=== PATIENT | female | born 1970 | race African-American/Black ===

== ENCOUNTER 2016-03-05 02:47 | Emergency (ER) | payer MEDICAID, OTHER ==
[~2016-03-05] VITALS: Ht 165.1 cm; Wt 89.6 kg
[~2016-03-05 02:47] MED LIST: CIPR500T4 PO; HYDR-3533 PO; MEDR4PAK3 PO; META800 PO; TYLE3 PO
[2016-03-05 03:25] VITALS: BP 124/73; PULSE 71; RESP 18; TEMP 98.9; O2SAT 98
[2016-03-05] MEDS ORDERED: NYST10007 TOPICAL (03:51)
--- NOTE | 2016-03-05 03:53 | PD ---
HPI Chief Complaint: Skin Problem Time Seen by Provider: 03:44 Travel History International Travel<30 days: No Contact w/Intl Traveler<30days: No Traveled to known affect area: No History of Present Illness HPI The patient is a 46-year-old female that noticed in the last 10 days in the intertriginous area of her bilateral groin a skin rash that is slightly pruritic and slightly painful. She has tried hydrocortisone ointment on it and this helped but slightly but the rash is still there. She states she is not diabetic. PFSH Past Medical History Diminished Hearing: No Immunizations Current: No ?: Not LMP: 2 DAYS AGO : 6 Para: 4 Miscarriage: 2 Social History Alcohol Use: No Tobacco Use: No Substance Use: No Allergies-Medications (Allergen,Severity, Reaction): Coded Allergies: No Known Allergies (Verified , 09/21/14) Reported Meds & Prescriptions Reported Meds & Active Scripts Active No Active Prescriptions or Reported Medications Review of Systems Except as stated in HPI: all other systems reviewed are Neg Physical Exam Narrative GENERAL: The patient is alert, oriented 3 in no apparent distress. The vital signs are normal. SKIN: Warm and dry. There is an intertriginous rash that appears fungal in the bilateral groin. HEAD: Atraumatic. Normocephalic. EYES: Pupils equal and round. No scleral icterus. No injection or drainage. ENT: No nasal bleeding or discharge. Mucous membranes pink and moist. NECK: Trachea midline. No JVD. CARDIOVASCULAR: Regular rate and rhythm. No murmur appreciated. RESPIRATORY: No accessory muscle use. Clear to auscultation. Breath sounds equal bilaterally. GASTROINTESTINAL: Abdomen soft, non-tender, nondistended. Hepatic and splenic margins not palpable. MUSCULOSKELETAL: No obvious deformities. No clubbing. No cyanosis. No edema. NEUROLOGICAL: Awake and alert. No obvious cranial nerve deficits. Motor grossly within normal limits. Normal speech. PSYCHIATRIC: Appropriate mood and affect; insight and judgment normal. [facility] Medical Decision Making Medical Screen Exam Complete: Yes Emergency Medical Condition: Yes Medical Record Reviewed: Yes Differential Diagnosis Tinea cruris, monilial dermatitis, cellulitisunlikely Narrative Course This rash appears only in the intertriginous area. For this reason this appears to be monilial dermatitis. Plan: The patient will be given nystatin powder and she will keep this area dry. If this does not work she should try an antifungal cream such as an azole. Diagnosis Primary Impression: Monilial rash Additional Instructions: Keep the area in the groin clean and dry. Apply the powder 2 times daily. If this does not work in several weeks then you should see a insole toe snipping machine operator or try an [id number] antifungal cream. Also apply the antifungal cream twice daily. Med/Other Pt SpecificInfo: Prescription(s) given Scripts Nystatin Topical (Nystop Topical)100,000 Unit/Gm Powd1 Applic TOPICAL Q12HR # 60 GM Ref 0 Prov:Gabriel Zavala MD 03/05/16 Disposition: 01 DISCHARGE HOME Condition: Stable Gabriel Zavala MD Mar 05, 2016 03:53
== END 2016-03-05 04:01 | disposition home or self-care (01) ==
LOC: PHED 02:47
DX: R21 Rash and other nonspecific skin eruption (principal); B37.49 Other urogenital candidiasis
CPT/HCPCS: 99282

== ENCOUNTER 2016-03-21 21:42 | Emergency (ER) | payer MEDICAID, OTHER ==
[~2016-03-21] VITALS: Ht 165.1 cm; Wt 90.0 kg
[~2016-03-21 21:42] MED LIST changes: -CIPR500T4 PO; -HYDR-3533 PO; -MEDR4PAK3 PO; -META800 PO; +NYST10007 TOPICAL; -TYLE3 PO
[2016-03-21 21:55] VITALS: BP 132/82; PULSE 68; RESP 20; TEMP 98.2; O2SAT 100
[2016-03-21] MEDS ORDERED: LORA-361 PO (22:03)
--- NOTE | 2016-03-21 22:13 | PD ---
HPI Chief Complaint: Pain: Acute or Chronic Time Seen by Provider: 22:01 Travel History International Travel<30 days: No Contact w/Intl Traveler<30days: No Traveled to known affect area: No History of Present Illness HPI This 46-year-old female is complaining of left-sided chest pain. She says the pain started 2 or 3 days ago. It was initially intermittent but since yesterday been continuous. It is aggravated by movement of her left arm and also by direct palpation. She did not get any relief with Gas-X. She has no history of heart disease. She has no history of hypertension or diabetes. Her mother has heart disease and is alive at the age of 89. She does feel as though she is been short of breath at times. She does not smoke. There is no radiation a down the arms or to the back. The pain has been constant since yesterday PFSH Past Medical History Diminished Hearing: No Immunizations Current: Yes : 6 Para: 4 Miscarriage: 2 Social History Alcohol Use: No Tobacco Use: No Substance Use: No Allergies-Medications (Allergen,Severity, Reaction): Coded Allergies: No Known Allergies (Verified , 03/21/16) Reported Meds & Prescriptions Reported Meds & Active Scripts Active Reported Claritin (Loratadine) 10 Mg Tab 10 Mg PO DAILY Review of Systems General / Constitutional: No: Fever, Chills Eyes: No: Diploplia, Blurred Vision HENT: No: Headaches, Vertigo Cardiovascular: Positive: Chest Pain or Discomfort Respiratory: No: Cough, Shortness of Breath Gastrointestinal: No: Vomiting, Diarrhea Genitourinary: No: Urgency Skin: No Rash, No Itching Neurologic: No: Weakness Hematologic/Lymphatic: No: Easy Bruising Physical Exam Narrative GENERAL: Well-developed female SKIN: Warm and dry. HEAD: Atraumatic. Normocephalic. EYES: Pupils equal and round. No scleral icterus. No injection or drainage. ENT: No nasal bleeding or discharge. Mucous membranes pink and moist. NECK: Trachea midline. No JVD. CARDIOVASCULAR: Regular rate and rhythm. No murmur appreciated. RESPIRATORY: No accessory muscle use. Clear to auscultation. Breath sounds equal bilaterally. He has left-sided costochondral tenderness GASTROINTESTINAL: Abdomen soft, non-tender, nondistended. Hepatic and splenic margins not palpable. MUSCULOSKELETAL: No obvious deformities. No clubbing. No cyanosis. No edema. NEUROLOGICAL: Awake and alert. No obvious cranial nerve deficits. Motor grossly within normal limits. Normal speech. PSYCHIATRIC: Appropriate mood and affect; insight and judgment normal. Data Data Last Documented VS Vital Signs Date Time Temp Pulse Resp B/P Pulse Ox O2 Delivery O2 Flow Rate FiO2 03/21/16 22:03 68 18 03/21/16 21:55 98.2 132/82 100 Orders Electrocardiogram (03/21/16 22:08) Basic Metabolic Panel (Bmp) (03/21/16 22:08) Complete Blood Count With Diff (03/21/16 22:08) Troponin I (03/21/16 22:08) Chest, Single Ap (03/21/16 22:08) Ibuprofen (Motrin) (03/21/16 22:15) Labs Laboratory Tests Test 03/21/16 22:45 White Blood Count 7.4 TH/MM3 Red Blood Count 3.99 MIL/MM3 Hemoglobin 9.5 GM/DL Hematocrit 29.3 % Mean Corpuscular Volume 73.5 FL Mean Corpuscular Hemoglobin 23.7 PG Mean Corpuscular Hemoglobin 32.3 % Concent Red Cell Distribution Width 16.7 % Platelet Count 482 TH/MM3 Mean Platelet Volume 6.5 FL Neutrophils (%) (Auto) 57.9 % Lymphocytes (%) (Auto) 29.9 % Monocytes (%) (Auto) 7.0 % Eosinophils (%) (Auto) 4.4 % Basophils (%) (Auto) 0.8 % Neutrophils # (Auto) 4.3 TH/MM3 Lymphocytes # (Auto) 2.2 TH/MM3 Monocytes # (Auto) 0.5 TH/MM3 Eosinophils # (Auto) 0.3 TH/MM3 Basophils # (Auto) 0.1 TH/MM3 CBC Comment AUTO DIFF Differential Comment AUTO DIFF CONFIRMED Platelet Estimate HIGH Platelet Morphology Comment CLUMPED Sodium Level 140 MEQ/L Potassium Level 3.7 MEQ/L Chloride Level 107 MEQ/L Carbon Dioxide Level 28.0 MEQ/L Anion Gap 5 MEQ/L Blood Urea Nitrogen 9 MG/DL Creatinine 0.79 MG/DL Estimat Glomerular Filtration 95 ML/MIN Rate Random Glucose 88 MG/DL Calcium Level 7.9 MG/DL Troponin I LESS THAN 0.02 NG/ML MDM Medical Decision Making Medical Screen Exam Complete: Yes Emergency Medical Condition: Yes Medical Record Reviewed: Yes Differential Diagnosis Differential includes costochondritis, coronary artery disease, atypical chest pain Narrative Course This lady's pain is reproducible with palpation. It has been present for 24 hours so the tests should be reliable. Repeat EKG shows a normal sinus rhythm. Her troponin is negative. She was given some ibuprofen with improvement of her pain. She is stable for discharge impression is costochondritis Diagnosis Primary Impression: Costochondritis, acute Additional Instructions: take ibuprofen for pain , return as needed, follow up with your own doctor Disposition: 01 DISCHARGE HOME Condition: Stable Raymond Porter MD Mar 21, 2016 22:13
[2016-03-21] MEDS ORDERED: IBUPROFEN 600 MG TAB PO ONE (22:15)
--- NOTE | 2016-03-21 22:39 | RADHPO ---
EXAM DATE/TIME: 03/21/2016 22:28 [facility] COMPARISON: No previous studies available for comparison. INDICATIONS : Chest pain. MEDICAL HISTORY : None. SURGICAL HISTORY : None. ENCOUNTER: Initial ACUITY: 2 days PAIN SCORE: 6/10 LOCATION: Bilateral chest FINDINGS: A single view of the chest demonstrates the lungs to be symmetrically aerated without evidence of mas s, infiltrate or effusion. The cardiomediastinal contours are unremarkable. Osseous structures are intact. CONCLUSION: Normal examination. Erick Jolley Jr., MD on March 21, 2016 at 22:38 Board Certified Radiologist. This report was verified electronically.
[2016-03-21 22:51] LABS: AUTOMATED NEUTROPHIL # 4.3 TH/MM3 (1.8-7.7); BASOPHIL # 0.1 TH/MM3 (0-0.2); BASOPHIL % 0.8 % (0.0-2.0); EOSINOPHIL # 0.3 TH/MM3 (0-0.4); EOSINOPHIL % 4.4 % (0.0-4.0); HEMATOCRIT 29.3 % (35.0-46.0); LYMPH % 29.9 % (9.0-44.0); LYMPHOCYTE # 2.2 TH/MM3 (1.0-4.8); MEAN CELL VOLUME 73.5 FL (80.0-100.0); MEAN CORPUSCULAR HEMOGLOBIN 23.7 PG (27.0-34.0); MEAN CORPUSCULAR HGB CONC 32.3 % (32.0-36.0); NEUT % 57.9 % (16.0-70.0); PLATELET COUNT 482 TH/MM3 (150-450); RED BLOOD COUNT 3.99 MIL/MM3 (4.00-5.30); RED CELL DISTRIBUTION WIDTH 16.7 % (11.6-17.2); WHITE BLOOD COUNT 7.4 TH/MM3 (4.0-11.0)
[2016-03-21 22:57] LABS: HEMO FLAGS AUTO DIFF
[2016-03-21 23:07] LABS: CHLORIDE 107 MEQ/L (98-107); POTASSIUM 3.7 MEQ/L (3.5-5.1); SODIUM (NA) 140 MEQ/L (136-145)
[2016-03-21 23:10] LABS: ANION GAP 5 MEQ/L (5-15); BLOOD UREA NITROGEN 9 MG/DL (7-18)
[2016-03-21 23:13] LABS: GLOMERULAR FILTRATION RATE 95 ML/MIN (>89)
[2016-03-21 23:15] LABS: PLATELET ESTIMATE SMEAR HIGH (NORMAL); PLATELET MORPHOLOGY CLUMPED (NORMAL); SCAN/DIFF AUTO DIFF CONFIRMED
[2016-03-21 23:45] VITALS: BP 130/76; PULSE 68; RESP 18; O2SAT 100
--- NOTE | 2016-03-22 15:02 | EKG ---
Date Performed: 03/21/2016 Time Performed: 22:17:20 PTAGE: 46 years EKG: Sinus rhythm Normal ECG NO SIGNIFICANT CHANGE FROM PRIOR ELECTROCARDIOGRAM. PREVIOUS TRACING : 05/27/2003 12.32 DOCTOR: Camron Damon Interpretating Date/Time 03/22/2016 15:01:04
== END 2016-03-21 23:45 | disposition home or self-care (01) ==
LOC: PHED 21:42
DX: M94.0 Chondrocostal junction syndrome [Tietze] (principal)
CPT/HCPCS: 71010; 80048; 84484; 85025; 93005

== ENCOUNTER 2016-10-01 05:24 | Emergency (ER) | payer MEDICAID, OTHER ==
[~2016-10-01] VITALS: Ht 165.1 cm; Wt 86.0 kg
[~2016-10-01 05:24] MED LIST changes: +LORA-361 PO; -NYST10007 TOPICAL
[2016-10-01 05:30] VITALS: BP 131/62; PULSE 83; RESP 18; TEMP 98.7; O2SAT 99
[2016-10-01] MEDS ORDERED: KETOROLAC TROMETHAMINE 30 MG/ML (IVP) VIAL IV PUSH ONE (05:45)
[2016-10-01] MEDS ORDERED: CLAR10CA3 PO (05:47)
[2016-10-01 06:11] LABS: BLOOD, URINE LARGE (NEG); GLUCOSE,URINE NEG (NEG); KETONE, URINE NEG (NEG); NITRITE,URINE NEG (NEG); PH, URINE 5.5 (5.0-8.5)
[2016-10-01 06:12] LABS: URINE COLOR STRAW (YELLW/STRAW)
[2016-10-01 06:15] LABS: AUTOMATED NEUTROPHIL # 6.1 TH/MM3 (1.8-7.7); BASOPHIL % 0.5 % (0.0-2.0); EOSINOPHIL # 0.2 TH/MM3 (0-0.4); EOSINOPHIL % 2.5 % (0.0-4.0); HEMATOCRIT 25.3 % (35.0-46.0); LYMPH % 23.5 % (9.0-44.0); LYMPHOCYTE # 2.1 TH/MM3 (1.0-4.8); MEAN CELL VOLUME 65.3 FL (80.0-100.0); MEAN CORPUSCULAR HEMOGLOBIN 19.6 PG (27.0-34.0); MEAN CORPUSCULAR HGB CONC 30.1 % (32.0-36.0); MONO % 6.3 % (0.0-8.0); NEUT % 67.2 % (16.0-70.0); PLATELET COUNT 650 TH/MM3 (150-450); RED BLOOD COUNT 3.87 MIL/MM3 (4.00-5.30)
[2016-10-01 06:16] LABS: BACTERIA, URINE OCC /hpf; COMMENT (UR) CULT NOT INDICATED; CULTURE IF INDICATED CULT NOT INDICATED; HEMO FLAGS AUTO DIFF
[2016-10-01 06:21] LABS: CHLORIDE 104 MEQ/L (98-107); POTASSIUM 3.6 MEQ/L (3.5-5.1); SODIUM (NA) 138 MEQ/L (136-145)
[2016-10-01 06:25] LABS: ANION GAP 9 MEQ/L (5-15); BICARBONATE 25.4 MEQ/L (21.0-32.0)
[2016-10-01 06:26] LABS: BLOOD UREA NITROGEN 11 MG/DL (7-18)
[2016-10-01 06:28] LABS: ALT (GPT) 20 U/L (10-53); AST (GOT) 16 U/L (15-37); GLOMERULAR FILTRATION RATE 84 ML/MIN (>89); OVALOCYTES 1+ (NORMAL)
[2016-10-01 06:29] LABS: PLATELET ESTIMATE SMEAR HIGH (NORMAL); PLATELET MORPHOLOGY NORMAL (NORMAL); SCAN/DIFF AUTO DIFF CONFIRMED
[2016-10-01 06:30] LABS: TOTAL BILIRUBIN ADULT 0.2 MG/DL (0.2-1.0)
[2016-10-01 06:31] LABS: ALKALINE PHOSPHATASE 76 U/L (45-117)
--- NOTE | 2016-10-01 06:33 | PD ---
HPI Chief Complaint: Musculoskeletal Complaint Time Seen by Provider: 05:42 Travel History International Travel<30 days: No Contact w/Intl Traveler<30days: No Traveled to known affect area: No History of Present Illness HPI 46-year-old female presents to the emergency department for complaint of right back pain and flank pain that is associated with right-sided stabbing lower anterior chest pain with deep inspiratory effort and with resting supine. Patient denies any injury. Patient's had no recent long distance travel retracted bedrest her surgery. No lower extremity pain or swelling. Patient also denies any referred lower extremity numbness tingling or weakness saddle anesthesia or bladder or bowel dysfunction. Patient denies any fever or chills. Patient denies any injury or fall. Patient rates pain as severe 9/10 in intensity and worsening. Patient took Pepto-Bismol because she said it was gas related without relief. Patient denies any abdominal pain. Patient has had no dysuria frequency or urgency. Patient denies any pelvic pain. Patient insists finishing her menses. No report of ovarian cyst. Patient denies . Patient has had back pain in the past but this is reportedly different. Patient has been evaluated for inflammatory chest discomfort in the past as well costochondritis pleurisy and again states this is different. Patient does not report any productive cough or hemoptysis. [facility] Past Medical History Narrative Medical Negative past medical history negative surgical history; no tobacco use no alcohol use; nursing notes reviewed Medical History: Denies Significant Hx Diminished Hearing: No Immunizations Current: Yes Tetanus Vaccination: > 5 Years Influenza Vaccination: No ?: Unknown LMP: NOW : 6 Para: 4 Miscarriage: 2 Past Surgical History Surgical History: No Previous Surgery Social History Alcohol Use: No Tobacco Use: No Substance Use: No Allergies-Medications (Allergen,Severity, Reaction): Coded Allergies: No Known Allergies (Verified , 10/01/16) Reported Meds & Prescriptions Reported Meds & Active Scripts Active Tramadol (Tramadol HCl) 50 Mg Tab 50 Mg PO Q6H PRN Robaxin (Methocarbamol) 750 Mg Tab 750 Mg PO Q6HR Reported Claritin (Loratadine) 10 Mg Cap 10 Mg PO DAILY Review of Systems Except as stated in HPI: all other systems reviewed are Neg General / Constitutional: No: Fever, Chills HENT: No: Congestion Cardiovascular: No: Chest Pain or Discomfort (right lower anterior chest pain with inspiratory effort), Diaphoresis, Dyspnea on exertion Respiratory: Positive: Shortness of Breath (with deep breath), Pleuritic Pain Gastrointestinal: No: Nausea, Vomiting, Abdominal Pain Genitourinary: Positive: Flank Pain, No: Dysuria, Hematuria, Decreased Urinary Output, Pelvic Pain Musculoskeletal: Positive: Pain (right lower back), No: Myalgias, Arthralgias Skin: No Rash Neurologic: No: Weakness Psychiatric: No: Anxiety, Depression Endocrine: No: Heat Intolerance Hematologic/Lymphatic: No: Easy Bruising Physical Exam Narrative GENERAL: Well-developed well-nourished female in obvious discomfort. Appears to be in no respiratory distress. SKIN: Warm and dry. HEAD: Atraumatic. Normocephalic. EYES: Pupils equal and round. No scleral icterus. No injection or drainage. ENT: No nasal bleeding or discharge. Mucous membranes pink and moist. NECK: Trachea midline. No JVD. CARDIOVASCULAR: Regular rate and rhythm. RESPIRATORY: No accessory muscle use. Clear to auscultation. Breath sounds equal bilaterally. GASTROINTESTINAL: Abdomen soft, non-tender, nondistended. Hepatic and splenic margins not palpable. MUSCULOSKELETAL: Extremities without clubbing, cyanosis, or edema. No obvious deformities. Negative SLR bilaterally. Right flank pain to palpation. Tender to palpation bilateral SI joints R>L. DTR's 2++= bilateral UE/LE without clonus; right dorsalis pedis pulses 2+ to palpation. Sensory exam intact. No palpable posterior calf cording or Homans sign. NEUROLOGICAL: Awake and alert. No obvious cranial nerve deficits. Motor grossly within normal limits. Five out of 5 muscle strength in the arms and legs. Normal speech. PSYCHIATRIC: Appropriate mood and affect; insight and judgment normal. Data Data Last Documented VS Vital Signs Date Time Temp Pulse Resp B/P Pulse Ox O2 Delivery O2 Flow Rate FiO2 10/01/16 05:30 98.7 83 18 131/62 99 Orders ^ Saline Lock (10/01/16 05:42) Complete Blood Count With Diff (10/01/16 05:42) Comprehensive Metabolic Panel (10/01/16 05:42) Lipase (10/01/16 05:42) Urinalysis - C+S If Indicated (10/01/16 05:42) Ed Urine Pregnancytest Poc (10/01/16 05:42) Ketorolac Inj (Toradol Inj) (10/01/16 05:45) Electrocardiogram (10/01/16 ) Ct Pulmonary Angiogram (10/01/16 ) Ct Abd/Pel W/O Iv Contrast (10/01/16 ) Morphine Inj (Morphine Inj) (10/01/16 06:45) Ondansetron Inj (Zofran Inj) (10/01/16 06:45) Sodium Chlor 0.9% 1000 Ml Inj (Ns 1000 M (10/01/16 06:45) Troponin I (10/01/16 06:00) Labs Laboratory Tests Test 10/01/16 06:00 White Blood Count 9.0 TH/MM3 Red Blood Count 3.87 MIL/MM3 Hemoglobin 7.6 GM/DL Hematocrit 25.3 % Mean Corpuscular Volume 65.3 FL Mean Corpuscular Hemoglobin 19.6 PG Mean Corpuscular Hemoglobin 30.1 % Concent Red Cell Distribution Width 19.0 % Platelet Count 650 TH/MM3 Mean Platelet Volume 6.4 FL Neutrophils (%) (Auto) 67.2 % Lymphocytes (%) (Auto) 23.5 % Monocytes (%) (Auto) 6.3 % Eosinophils (%) (Auto) 2.5 % Basophils (%) (Auto) 0.5 % Neutrophils # (Auto) 6.1 TH/MM3 Lymphocytes # (Auto) 2.1 TH/MM3 Monocytes # (Auto) 0.6 TH/MM3 Eosinophils # (Auto) 0.2 TH/MM3 Basophils # (Auto) 0.0 TH/MM3 CBC Comment AUTO DIFF Differential Comment AUTO DIFF CONFIRMED Platelet Estimate HIGH Platelet Morphology Comment NORMAL Ovalocytes 1+ Urine Color STRAW Urine Turbidity SLIGHT Urine pH 5.5 Urine Specific [place] 1.008 Urine Protein NEG mg/dL Urine Glucose (UA) NEG mg/dL Urine Ketones NEG mg/dL Urine Occult Blood LARGE Urine Nitrite NEG Urine Bilirubin NEG Urine Leukocyte Esterase SMALL Urine RBC 4-9 /hpf Urine WBC 3-5 /hpf Urine Squamous Epithelial 6-8 /hpf Cells Urine Bacteria OCC /hpf Microscopic Urinalysis Comment CULT NOT INDICATED Sodium Level 138 MEQ/L Potassium Level 3.6 MEQ/L Chloride Level 104 MEQ/L Carbon Dioxide Level 25.4 MEQ/L Anion Gap 9 MEQ/L Blood Urea Nitrogen 11 MG/DL Creatinine 0.88 MG/DL Estimat Glomerular Filtration 84 ML/MIN Rate Random Glucose 107 MG/DL Calcium Level 8.4 MG/DL Total Bilirubin 0.2 MG/DL Aspartate Amino Transf 16 U/L (AST/SGOT) Alanine Aminotransferase 20 U/L (ALT/SGPT) Alkaline Phosphatase 76 U/L Total Protein 8.1 GM/DL Albumin 3.2 GM/DL Lipase 115 U/L MDM Medical Decision Making Medical Screen Exam Complete: Yes Emergency Medical Condition: Yes Medical Record Reviewed: Yes Interpretation(s) CBC & BMP Diagram 10/01/16 06:00 POC hCG: Negative Urinalysis large blood few RBCs few bacteria culture not indicated EKG normal sinus rhythm rate [address] elevation or injury pattern change Vital Signs Date Time Temp Pulse Resp B/P Pulse Ox O2 Delivery O2 Flow Rate FiO2 10/01/16 05:30 98.7 83 18 131/62 99 Differential Diagnosis Flank pain renal colic UTI pyelonephritis biliary colic sciatica pneumonia PE sacroiliitis lumbar radiculopathy shingles Narrative Course IV access obtained specimens collected and sent for resulting anticipate patient presents with musculoskeletal pain a sciatica variant also to consider piriformis syndrome however pain is primarily in the flank area and causes her to have increased pain in the chest with pleuritic type presentation on deep inspiratory effort. Patient administered Toradol 30 mg IV CBC is automated differential remarkable for anemia hemoglobin 7.6 with chronic iron deficiency indices. White cell count differential within normal limits grossly and metabolic panel values grossly within normal range urinalysis does show large blood consistent with end of menses. No indication for urine culture. Patient shows improvement of pain after Toradol 30 mg IV but continues to complain of sharp pain now not on the back but worsening when taking inspiratory effort with profile appears to be low for PE no reported family history of clotting disorder or connective tissue disorder autoimmune disorder patient is nonsmoker does not take control pills and no recent activities to predisposed to PE such as sedentary behavior protracted bed rest surgical procedure or long distance travel. However due to patient's ongoing complaint of sharp pain into her chest worsened with deep inspiratory effort will proceed with CT pulmonary angiogram EKG performed along with troponin I. CT and trop pendnig Diagnosis Primary Impression: Right flank pain Referrals: Primary Care Physician call for appointment Patient Instructions: Narcotic given in the ED, General Instructions Additional Instructions: Apply moist heat to right flank area as needed Take as tolerated ibuprofen 800 mg as often as every 8 hours for pain associated with inflammation Take acetaminophen/Tylenol every 4 hours as needed for fever 100.4F or greater Take muscle relaxants as prescribed as needed Take pain medication as prescribed as needed No work times one day Follow-up with primary care provider call office in a.m. Med/Other Pt SpecificInfo: Prescription(s) given Scripts Tramadol 50 Mg Tab50 Mg PO Q6H PRN (PAIN) #7 TAB Ref 0 Prov:Vannessa Linares MD 10/01/16 Methocarbamol (Robaxin)750 Mg Wib002 Mg PO Q6HR #12 TAB Ref 0 Prov:Vannessa Linares MD 10/01/16 Vannessa Linares MD Oct 01, 2016 06:33
[2016-10-01] MEDS ORDERED: SODIUM CHLOR 0.9% 1000 ML INJ 1,000 ML IV ONE (06:45)
[2016-10-01] MEDS ORDERED: MORPHINE SULFATE 8 MG/ML INJ IV PUSH ONE (06:45)
[2016-10-01] MEDS ORDERED: ONDANSETRON HCL 4 MG/2 ML VIAL IV PUSH ONE (06:45)
[2016-10-01] MEDS ORDERED: TRAM50TA PO (06:57)
[2016-10-01] MEDS ORDERED: ROBA750T PO (06:57)
[2016-10-01 07:00] VITALS: BP 115/61; PULSE 69; RESP 16; O2SAT 99
[2016-10-01] MEDS ORDERED: IOHEXOL 350 MG/ML 10 ML VIAL (for RAD DIAG) IV ONE (07:25)
[2016-10-01 07:31] VITALS: BP 117/68; PULSE 70; RESP 16; O2SAT 99
--- NOTE | 2016-10-01 07:37 | RADRPT ---
EXAM DATE/TIME: 10/01/2016 07:04 [facility] COMPARISON: No previous studies available for comparison. INDICATIONS : Right sided pain radiating anteriorly into chest on inspiration. Evaluate for pulmonary embolism. IV CONTRAST: 65 cc Omnipaque 350 (iohexol) IV RADIATION DOSE: 14.91 CTDIvol (mGy) MEDICAL HISTORY : None SURGICAL HISTORY : None. ENCOUNTER: Initial ACUITY: 1 day PAIN SCALE: 9/10 LOCATION: chest TECHNIQUE: Volumetric scanning of the chest was performed using a pulmonary embolism protocol MIP images were re constructed. Using automated exposure control and adjustment of the mA and/or kV according to patien t size, radiation dose was kept as low as reasonably achievable to obtain optimal diagnostic quality images. DICOM format image data is available electronically for review and comparison. Follow-up recommendations for incidentally detected pulmonary nodules are based at a minimum on nodul e size and patient risk factors according to Fleischner Society Guidelines. FINDINGS: PULMONARY ARTERIES: No filling defects are seen in the pulmonary arteries through the segmental level. LUNGS: There is no consolidation or pneumothorax . No concerning pulmonary nodule is visualized. PLEURAE: There is no pleural thickening or pleural effusion. MEDIASTINUM: Heart and great vessels demonstrate no acute finding. There is residual thymic tissue in the intermed iastinum and there are small, nonenlarged, lymph nodes in the AP window. MUSCULOSKELETAL: There are mild degenerative changes of the thoracic spine. MISCELLANEOUS: The visualized upper abdominal organs demonstrate no acute abnormality. There are 2 8mm low-density l esions in the left lobe of the liver. These have density measurements characteristic of cysts. CONCLUSION: 1. No PE is identified. 2. Additionally, no acute finding is identified within the chest to explain the clinical symptoms. Skyler Knight MD on October 01, 2016 at 7:31 Board Certified Radiologist. This report was verified electronically.
--- NOTE | 2016-10-01 07:42 | RADRPT ---
EXAM DATE/TIME: 10/01/2016 07:04 [facility] COMPARISON: No previous studies available for comparison. INDICATIONS : Right flank pain. Hematuria. ORAL CONTRAST: No oral contrast ingested. RADIATION DOSE: 23.07 CTDIvol (mGy) MEDICAL HISTORY : None SURGICAL HISTORY : None. ENCOUNTER: Initial ACUITY: 1 day PAIN SCALE: 9/10 LOCATION: Right flank TECHNIQUE: Volumetric scanning of the abdomen and pelvis was performed. Using automated exposure control and ad justment of the mA and/or kV according to patient size, radiation dose was kept as low as reasonably achievable to obtain optimal diagnostic quality images. DICOM format image data is available electro nically for review and comparison. FINDINGS: LOWER LUNGS: The visualized lower lungs are clear. LIVER: Homogeneous density with 3 low density lesions measuring between 5 and 8 mm with density measurements characteristic of cysts. There is no dilation of the biliary tree. No calcified gallstones. SPLEEN: Normal size without lesion. PANCREAS: Within normal limits. KIDNEYS: Normal in size and shape. There is no mass, stone, or hydronephrosis. No ureteral stones are visuali zed. ADRENAL GLANDS: Within normal limits. VASCULAR: There is no aortic aneurysm. BOWEL/MESENTERY: The stomach, small bowel, and colon demonstrate no acute abnormality. There is no free intraperitone al air or fluid. Appendix is normal. ABDOMINAL WALL: Within normal limits. RETROPERITONEUM: There is no lymphadenopathy. BLADDER: No wall thickening or mass. REPRODUCTIVE: Uterus is retroverted and mildly enlarged. No acute finding is identified. INGUINAL: There is no lymphadenopathy or hernia. MUSCULOSKELETAL: No acute abnormality is visualized. CONCLUSION: 1. No renal stones or signs of urinary obstruction are identified. 2. Additionally, no other acute finding is identified within the abdomen or pelvis. Skyler Knight MD on October 01, 2016 at 7:36 Board Certified Radiologist. This report was verified electronically.
--- NOTE | 2016-10-01 17:15 | EKG ---
Date Performed: 10/01/2016 Time Performed: 06:51:55 PTAGE: 46 years EKG: Sinus rhythm POSSIBLE LEFT ATRIAL ENLARGEMENT NONSPECIFIC T-WAVE ABNORMALITY BORDERLINE ECG Since PREVIOUS TRACING , no significant change noted PREVIOUS TRACIN03/21/2016 22.17 DOCTOR: Amanda Ordaz Interpretating Date/Time 10/01/2016 17:14:41
== END 2016-10-01 07:57 | disposition home or self-care (01) ==
LOC: PHED 05:24
DX: R10.9 Unspecified abdominal pain (principal); R94.31 Abnormal electrocardiogram [ECG] [EKG]
CPT/HCPCS: 71275; 74176; 80053; 81001; 83690; 84484; 84703; 85025; 93005; 96361; 96374; 96375; 99285; J1885; J2270; J2405; J7030; Q9967

== ENCOUNTER 2016-10-05 14:45 | Emergency (ER) | payer OTHER ==
[~2016-10-05] VITALS: Ht 165.1 cm; Wt 87.2 kg
[~2016-10-05 14:45] MED LIST changes: +CLAR10CA3 PO; -LORA-361 PO; +ROBA750T PO; +TRAM50TA PO
[2016-10-05 14:49] VITALS: BP 127/73; PULSE 84; RESP 16; TEMP 99; O2SAT 98
[2016-10-05 15:11] LABS: MEAN CORPUSCULAR HGB CONC 29.4 % (32.0-36.0)
--- NOTE | 2016-10-05 15:17 | PD ---
HPI Chief Complaint: Abnormal Results Time Seen by Provider: 15:03 Travel History International Travel<30 days: No Contact w/Intl Traveler<30days: No Traveled to known affect area: No History of Present Illness HPI This 46-year-old female was told to come here because of anemia. She was here on October 01 because of right flank pain. She had a fairly complete workup which did not reveal a cause of the pain. She was put on muscle relaxers and the pain has improved. At that time her visit on the she had hemoglobin of 7.6. She went to her primary care physician for follow-up. Repeat lab work was done and she was found to have a hemoglobin of 7. Her iron is 13 with an iron binding capacity of 318 and a percent saturation of 4. She does have hyperchromic microcytic indices. Patient has not had any dark stools. She does say that she has heavy periods and bleeds for about 2 weeks every month. She has not been short of breath. She is scheduled for pelvic ultrasound tomorrow PFS Past Medical History Diminished Hearing: No Immunizations Current: Yes ?: Not : 6 Para: 4 Miscarriage: 2 Social History Alcohol Use: No Tobacco Use: No Substance Use: No Allergies-Medications (Allergen,Severity, Reaction): Coded Allergies: No Known Allergies (Verified , 10/05/16) Reported Meds & Prescriptions Reported Meds & Active Scripts Active No Active Prescriptions or Reported Medications Review of Systems General / Constitutional: No: Fever, Chills Eyes: No: Diploplia, Blurred Vision HENT: No: Headaches Cardiovascular: No: Chest Pain or Discomfort, Palpitations Respiratory: No: Cough Gastrointestinal: No: Nausea, Vomiting Genitourinary: No: Urgency, Frequency Skin: No Rash, No Itching Physical Exam Narrative GENERAL: A little female SKIN: Focused skin assessment warm/dry. HEAD: Atraumatic. Normocephalic. EYES: Pupils equal and round. No scleral icterus. No injection or drainage. ENT: No nasal bleeding or discharge. Mucous membranes pink and moist. NECK: Trachea midline. No JVD. CARDIOVASCULAR: Regular rate and rhythm. No murmur appreciated. RESPIRATORY: No accessory muscle use. Clear to auscultation. Breath sounds equal bilaterally. GASTROINTESTINAL: Abdomen soft, non-tender, nondistended. Hepatic and splenic margins not palpable. MUSCULOSKELETAL: No obvious deformities. No clubbing. No cyanosis. No edema. NEUROLOGICAL: Awake and alert. No obvious cranial nerve deficits. Motor grossly within normal limits. Normal speech. PSYCHIATRIC: Appropriate mood and affect; insight and judgment normal. Data Data Last Documented VS Vital Signs Date Time Temp Pulse Resp B/P Pulse Ox O2 Delivery O2 Flow Rate FiO2 10/05/16 14:49 99.0 84 16 127/73 98 Orders Complete Blood Count With Diff (10/05/16 15:10) Labs Laboratory Tests Test 10/05/16 15:30 White Blood Count 4.9 TH/MM3 Red Blood Count 3.52 MIL/MM3 Hemoglobin 6.8 GM/DL Hematocrit 23.1 % Mean Corpuscular Volume 65.6 FL Mean Corpuscular Hemoglobin 19.3 PG Mean Corpuscular Hemoglobin 29.4 % Concent Red Cell Distribution Width 19.0 % Platelet Count 616 TH/MM3 Mean Platelet Volume 6.1 FL Neutrophils (%) (Auto) 46.7 % Lymphocytes (%) (Auto) 35.1 % Monocytes (%) (Auto) 12.6 % Eosinophils (%) (Auto) 5.1 % Basophils (%) (Auto) 0.5 % Neutrophils # (Auto) 2.4 TH/MM3 Lymphocytes # (Auto) 1.7 TH/MM3 Monocytes # (Auto) 0.6 TH/MM3 Eosinophils # (Auto) 0.2 TH/MM3 Basophils # (Auto) 0.0 TH/MM3 CBC Comment AUTO DIFF [place] Medical Decision Making Medical Screen Exam Complete: Yes Emergency Medical Condition: Yes Medical Record Reviewed: Yes Differential Diagnosis Differential includes iron deficiency anemia Narrative Course Patient does have iron deficiency anemia according to lab work done previously. Her hemoglobin today is 6.8, he does have symptoms of fatigue and dyspnea on exertion. I have discussed the pros and cons of transfusion versus iron mentation. She wishes a trial of iron at this time. I will write a prescription. She is undergoing evaluation for menorrhagia Diagnosis Primary Impression: Iron deficiency anemia Qualified Code: D50.0 - Iron deficiency anemia due to chronic blood loss Scripts Ferrous Gluconate 324 Mg Tab1 Tab PO BID 30 Days Prov:Raymond Porter MD 10/05/16 Disposition: 01 DISCHARGE HOME Condition: Stable Raymond Porter MD Oct 05, 2016 15:17
[2016-10-05 15:31] LABS: AUTOMATED NEUTROPHIL # 2.4 TH/MM3 (1.8-7.7); BASOPHIL % 0.5 % (0.0-2.0); EOSINOPHIL # 0.2 TH/MM3 (0-0.4); EOSINOPHIL % 5.1 % (0.0-4.0); HEMATOCRIT 23.1 % (35.0-46.0); LYMPH % 35.1 % (9.0-44.0); LYMPHOCYTE # 1.7 TH/MM3 (1.0-4.8); MEAN CELL VOLUME 65.6 FL (80.0-100.0); MEAN CORPUSCULAR HEMOGLOBIN 19.3 PG (27.0-34.0); MONO % 12.6 % (0.0-8.0); NEUT % 46.7 % (16.0-70.0); PLATELET COUNT 616 TH/MM3 (150-450); RED BLOOD COUNT 3.52 MIL/MM3 (4.00-5.30); WHITE BLOOD COUNT 4.9 TH/MM3 (4.0-11.0)
[2016-10-05 15:34] LABS: HEMO FLAGS AUTO DIFF
[2016-10-05] MEDS ORDERED: FERR324T PO (15:47)
[2016-10-05 16:02] LABS: OVALOCYTES 1+ (NORMAL); SCAN/DIFF AUTO DIFF CONFIRMED; TARGET CELLS 1+ (NORMAL)
[2016-10-05 16:03] VITALS: BP 103/61
== END 2016-10-05 16:06 | disposition home or self-care (01) ==
LOC: PHED 14:45
DX: D50.0 Iron deficiency anemia secondary to blood loss (chronic) (principal); N92.0 Excessive and frequent menstruation with regular cycle
CPT/HCPCS: 85025; 99283

== ENCOUNTER 2016-10-10 19:38 | Emergency (ER) | payer OTHER ==
[~2016-10-10] VITALS: Ht 165.1 cm; Wt 87.4 kg
[~2016-10-10 19:38] MED LIST changes: -CLAR10CA3 PO; +FERR324T PO; -ROBA750T PO; -TRAM50TA PO
[2016-10-10 19:53] VITALS: BP 144/65; PULSE 71; RESP 16; TEMP 98.8; O2SAT 100
[2016-10-10 20:56] VITALS: BP_SYST 11; BP_SYST 111; BP_DIAS 66; PULSE 73; RESP 16; O2SAT 99
[2016-10-10 21:15] VITALS: BP 107/65; PULSE 92; RESP 16; TEMP 98.2; O2SAT 100
[2016-10-10] MEDS ORDERED: SODIUM CHLORIDE 0.9% FLUSH 10 ML FLUSH IVF PRN (21:15)
[2016-10-10 21:21] LABS: AUTOMATED NEUTROPHIL # 4.1 TH/MM3 (1.8-7.7); BASOPHIL % 0.4 % (0.0-2.0); EOSINOPHIL # 0.4 TH/MM3 (0-0.4); HEMATOCRIT 24.2 % (35.0-46.0); HEMO FLAGS AUTO DIFF; LYMPH % 33.1 % (9.0-44.0); LYMPHOCYTE # 2.5 TH/MM3 (1.0-4.8); MEAN CELL VOLUME 65.3 FL (80.0-100.0); MEAN CORPUSCULAR HEMOGLOBIN 19.6 PG (27.0-34.0); NEUT % 53.5 % (16.0-70.0); PLATELET COUNT 662 TH/MM3 (150-450); RED BLOOD COUNT 3.71 MIL/MM3 (4.00-5.30); WHITE BLOOD COUNT 7.6 TH/MM3 (4.0-11.0)
[2016-10-10 21:37] LABS: PLATELET ESTIMATE SMEAR HIGH (NORMAL); PLATELET MORPHOLOGY NORMAL (NORMAL)
[2016-10-10 21:38] LABS: SCAN/DIFF AUTO DIFF CONFIRMED
[2016-10-10 21:40] LABS: APTT (PATIENT) 29.4 SEC (24.3-30.1); PROTHROMBIN TIME - PATIENT 10.5 SEC (9.8-11.6)
[2016-10-10 21:46] VITALS: BP 131/73; PULSE 64; RESP 18; O2SAT 100
[2016-10-10 21:49] LABS: CHLORIDE 106 MEQ/L (98-107); POTASSIUM 3.8 MEQ/L (3.5-5.1); SODIUM (NA) 140 MEQ/L (136-145)
[2016-10-10 21:52] LABS: ANION GAP 7 MEQ/L (5-15); BICARBONATE 27.4 MEQ/L (21.0-32.0)
[2016-10-10 21:53] LABS: BLOOD UREA NITROGEN 11 MG/DL (7-18)
[2016-10-10 21:56] LABS: GLOMERULAR FILTRATION RATE 113 ML/MIN (>89)
[2016-10-10 22:01] LABS: CREATINE KINASE 97 U/L (26-192)
--- NOTE | 2016-10-10 22:19 | RADRPT ---
EXAM DATE/TIME: 10/10/2016 21:54 [facility] COMPARISON: No previous studies available for comparison. INDICATIONS : Neck pain. No injury. MEDICAL HISTORY : None. SURGICAL HISTORY : None. ENCOUNTER: Initial ACUITY: 1 day PAIN SCORE: 6/10 LOCATION: Bilateral cervical spine. FINDINGS: No fracture or subluxation of the cervical spine. There is a mild kyphosis centered around C5, presum ably degenerative. Mild disc space narrowing and mild bilateral uncovertebral and facet osteoarthriti s with mild bilateral foraminal stenosis seen at C4/C5 and C5/C6. There is mild osteoarthritis anteriorly at C1/C2. CONCLUSION: No fracture or subluxation of the cervical spine. Mild degenerative changes with mild bilateral maxime inal encroachment at C4/C5 and C5/C6. Skyler Perez MD on October 10, 2016 at 22:17 Board Certified Radiologist. This report was verified electronically.
[2016-10-10 22:30] VITALS: BP 142/72
--- NOTE | 2016-10-10 22:56 | PD ---
HPI Chief Complaint: General Weakness Time Seen by Provider: 20:58 Travel History International Travel<30 days: No Contact w/Intl Traveler<30days: No Traveled to known affect area: No History of Present Illness HPI 46-year-old female here for evaluation of right-sided neck pain, nausea, and generalized weakness. Right-sided neck pain started today spontaneously. She describes a burning sensation intermittently in her right side of her neck that shoots down her right arm. She denies trauma. No motor deficits. No real modifying factors to her pain. Patient was seen in the emergency department 5 days ago and was found to be anemic with a hemoglobin of 6.8. She had microcytic anemia and was thought to be secondary to iron deficiency anemia. The patient also reports history of heavy vaginal bleeding/menorrhagia which she is in the process of having worked up as an outpatient. Discussion was had at that time with the emergency physician as well as the patient regarding iron therapy versus blood transfusion. The patient preferred iron therapy, and she is here today for repeat blood work. She does state that her stool is now black , but states that she is on iron. She is not currently having any menstrual bleeding. No chest pain or dyspnea. No abdominal pain. PFSH Past Medical History Diminished Hearing: No Immunizations Current: Yes Tetanus Vaccination: < 5 Years Influenza Vaccination: Yes ?: Not LMP: ONE WEEK AGO : 6 Para: 4 Miscarriage: 2 Social History Alcohol Use: No Tobacco Use: No Substance Use: No Allergies-Medications (Allergen,Severity, Reaction): Coded Allergies: No Known Allergies (Verified , 10/10/16) Reported Meds & Prescriptions Reported Meds & Active Scripts Active Ferrous Gluconate 324 Mg Tab 1 Tab PO BID 30 Days Review of Systems Except as stated in HPI: all other systems reviewed are Neg Physical Exam Narrative GENERAL: Well-developed, well-nourished, awake, alert, comfortable, no apparent distress. SKIN: Focused skin assessment warm/dry. HEAD: Atraumatic. Normocephalic. EYES: Pupils equal and round. No scleral icterus. No injection or drainage. ENT: Mucous membranes pink and moist. NECK: Trachea midline. No JVD. No midline vertebral step-off or tenderness. There is mild right lateral neck tenderness. No nuchal rigidity. CARDIOVASCULAR: Regular rate and rhythm. No murmur appreciated. RESPIRATORY: No accessory muscle use. Clear to auscultation. Breath sounds equal bilaterally. GASTROINTESTINAL: Abdomen soft, non-tender, nondistended. MUSCULOSKELETAL: No obvious deformities. No clubbing. No cyanosis. No edema. NEUROLOGICAL: Awake and alert. No obvious cranial nerve deficits. Motor grossly within normal limits. Normal speech. Normal muscle strength and sensation in bilateral upper and lower extremities. PSYCHIATRIC: Appropriate mood and affect; insight and judgment normal. Data Data Last Documented VS Vital Signs Date Time Temp Pulse Resp B/P Pulse Ox O2 Delivery O2 Flow Rate FiO2 10/10/16 21:46 64 18 131/73 100 Room Air 10/10/16 21:15 98.2 Orders Electrocardiogram (10/10/16 19:57) Basic Metabolic Panel (Bmp) (10/10/16 21:06) Ckmb (Isoenzyme) Profile (10/10/16 21:06) Complete Blood Count With Diff (10/10/16 21:06) Prothrombin Time / Inr (Pt) (10/10/16 21:06) Act Partial Throm Time (Ptt) (10/10/16 21:06) Troponin I (10/10/16 21:06) Ecg Monitoring (10/10/16 21:06) Iv Access Insert/Monitor (10/10/16 21:06) Oximetry (10/10/16 21:06) Sodium Chloride 0.9% Flush (Ns Flush) (10/10/16 21:15) Spine, Cervical Compl([id number]) (10/10/16 ) Labs Laboratory Tests Test 10/10/16 21:10 White Blood Count 7.6 TH/MM3 Red Blood Count 3.71 MIL/MM3 Hemoglobin 7.3 GM/DL Hematocrit 24.2 % Mean Corpuscular Volume 65.3 FL Mean Corpuscular Hemoglobin 19.6 PG Mean Corpuscular Hemoglobin 30.0 % Concent Red Cell Distribution Width 19.0 % Platelet Count 662 TH/MM3 Mean Platelet Volume 6.7 FL Neutrophils (%) (Auto) 53.5 % Lymphocytes (%) (Auto) 33.1 % Monocytes (%) (Auto) 8.0 % Eosinophils (%) (Auto) 5.0 % Basophils (%) (Auto) 0.4 % Neutrophils # (Auto) 4.1 TH/MM3 Lymphocytes # (Auto) 2.5 TH/MM3 Monocytes # (Auto) 0.6 TH/MM3 Eosinophils # (Auto) 0.4 TH/MM3 Basophils # (Auto) 0.0 TH/MM3 CBC Comment AUTO DIFF Differential Comment AUTO DIFF CONFIRMED Platelet Estimate HIGH Platelet Morphology Comment NORMAL Prothrombin Time 10.5 SEC Prothromb Time International 1.0 RATIO Ratio Activated Partial 29.4 SEC Thromboplast Time Sodium Level 140 MEQ/L Potassium Level 3.8 MEQ/L Chloride Level 106 MEQ/L Carbon Dioxide Level 27.4 MEQ/L Anion Gap 7 MEQ/L Blood Urea Nitrogen 11 MG/DL Creatinine 0.68 MG/DL Estimat Glomerular Filtration 113 ML/MIN Rate Random Glucose 88 MG/DL Calcium Level 8.3 MG/DL Total Creatine Kinase 97 U/L Troponin I LESS THAN 0.02 NG/ML MDM Medical Decision Making Medical Screen Exam Complete: Yes Emergency Medical Condition: Yes Medical Record Reviewed: Yes Interpretation(s) EKG: Sinus, rate 67, normal axis, normal intervals, no acute ischemic abnormality. Differential Diagnosis Cervical spine disc disease, foraminal stenosis, anemia/symptomatic anemia, cord compression unlikely, meningitis/encephalitis unlikely Narrative Course Initial vital signs show heart rate 71, blood pressure 144/65, pulse ox 100% on room air, oral temp of 98.8F. CBC is remarkable for hemoglobin 7.3, hematocrit 24.2, MCV 65.3, MCH 19.6, platelets 662. The patient's H&H 5 days ago was 6.8/23.1. BMP is unremarkable. Cardiac enzymes are negative. CT cervical spine: CONCLUSION: No fracture or subluxation of the cervical spine. Mild degenerative changes with mild bilateral foraminal encroachment at C4/C5 and C5/C6. Patient made aware of all findings. She is resting comfortably. Again there are no focal deficits or motor weakness on exam. Patient is happy that her hemoglobin is up trending, and still would like to continue with iron and outpatient follow-up as opposed to the transfusion. At this point I believe she is stable for discharge home with outpatient follow-up. She was informed on when to return to the emergency department. She verbalizes understanding and agreement with plan. Diagnosis Primary Impression: Anemia Qualified Code: D64.9 - Anemia, unspecified type Additional Impression: Neck pain Referrals: Primary Care Physician 3 days Additional Instructions: Follow-up with your primary care physician this week. Return to the emergency department for worsening symptoms or any other concerns. Disposition: 01 DISCHARGE HOME Condition: Stable Zay Jefferson MD Oct 10, 2016 22:55
[2016-10-10] MEDS ORDERED: KETOROLAC TROMETHAMINE 30 MG/ML (IVP) VIAL IV PUSH ONE (23:00)
[2016-10-10 23:15] VITALS: BP 117/57; TEMP 97.5
--- NOTE | 2016-10-11 00:19 | EKG ---
Date Performed: 10/10/2016 Time Performed: 20:04:41 PTAGE: 46 years EKG: Sinus rhythm POSSIBLE LEFT ATRIAL ENLARGEMENT NON-SPECIFIC ST/T WAVE CHANGES BORDERLINE ECG PREVIOUS TRACING : 10/01/2016 06.51 Compared to prior tracing no significant change DOCTOR: Emery Butler Interpretating Date/Time 10/11/2016 00:18:01
== END 2016-10-10 23:23 | disposition home or self-care (01) ==
LOC: PHED 19:38
DX: D64.9 Anemia, unspecified (principal); M54.2 Cervicalgia
CPT/HCPCS: 72050; 80048; 82550; 84484; 85025; 85610; 85730; 93005; 96374; 99285; J1885

== ENCOUNTER 2017-02-04 21:21 | Emergency (ER) | payer OTHER ==
[~2017-02-04] VITALS: Ht 165.1 cm; Wt 89.8 kg
[~2017-02-04 21:21] MED LIST changes: +DIFL150T PO; +NORE1TAB60 PO
[2017-02-04 21:29] VITALS: BP 136/68; PULSE 74; RESP 22; TEMP 98; O2SAT 99
[2017-02-04 21:30] VITALS: BP 136/68; PULSE 74; RESP 15; TEMP 98; O2SAT 99
--- NOTE | 2017-02-04 22:39 | PD ---
HPI Chief Complaint: General Weakness Time Seen by Provider: 21:37 Travel History International Travel<30 days: No Contact w/Intl Traveler<30days: No Traveled to known affect area: No History of Present Illness HPI PATIENT C/O FATIGUE AND GENERALIZED WEAKNESS RATES IT ABOUT AN 09/04......., NO ALLEVIATING FACTORS, BUT AGGRAVATED BY ACTIVITY......PT DENIES ASSOC FACTORS SUCH FEVER/COUGH/N/V/D/HEMATURIA/HEMATOCHEZIA/GI BLEED/ CP/ADEN/ABDPAIN/BACK PAIN. PCP IS DR LUNDBERG IN [facility] PMHX: LARGE FIBROIDS WITH HEAVY MENSES, ANEMIA DUE TO FIBROID PFSH Past Medical History Anemia: Yes Diminished Hearing: No Immunizations Current: Yes Tetanus Vaccination: Unknown Influenza Vaccination: No ?: Not LMP: 01/18/2017 : 6 Para: 4 Miscarriage: 2 Past Surgical History Surgical History: No Previous Surgery Social History Alcohol Use: No Tobacco Use: No Substance Use: No Allergies-Medications (Allergen,Severity, Reaction): Coded Allergies: No Known Allergies (Verified Adverse Reaction, Unknown, 12/27/16) Reported Meds & Prescriptions Reported Meds & Active Scripts Active Diflucan (Fluconazole) 150 Mg Tab 150 Mg PO ONCE Loestrin 1/20 (Norethindrone-Ethinyl Estradiol) 1-20 Mg-Mcg Tab 1 Tab PO DAILY Ferrous Gluconate 324 Mg Tab 1 Tab PO BID 30 Days Review of Systems Except as stated in HPI: all other systems reviewed are Neg General / Constitutional: Positive: Other (FATIGUE) Eyes: No: Visual changes HENT: No: Headaches Cardiovascular: No: Chest Pain or Discomfort Respiratory: No: Shortness of Breath Gastrointestinal: No: Abdominal Pain Genitourinary: No: Dysuria Musculoskeletal: No: Pain Skin: No Rash Neurologic: No: Weakness Psychiatric: No: Depression Endocrine: No: Polydipsia Hematologic/Lymphatic: No: Easy Bruising Physical Exam Narrative GENERAL: SKIN: Warm and dry. HEAD: Atraumatic. Normocephalic. EYES: Pupils equal and round. No scleral icterus. PALE CONJUNCTIVA WITHOUT injection or drainage. ENT: No nasal bleeding or discharge. Mucous membranes pink and moist. NECK: Trachea midline. No JVD. CARDIOVASCULAR: Regular rate and rhythm. RESPIRATORY: No accessory muscle use. Clear to auscultation. Breath sounds equal bilaterally. GASTROINTESTINAL: Abdomen soft, non-tender, nondistended. MUSCULOSKELETAL: Extremities without clubbing, cyanosis, or edema. No obvious deformities. NEUROLOGICAL: Awake and alert. No obvious cranial nerve deficits. Motor grossly within normal limits. Five out of 5 muscle strength in the arms and legs. Normal speech. PSYCHIATRIC: Appropriate mood and affect; insight and judgment normal. Data Data Last Documented VS Vital Signs Date Time Temp Pulse Resp B/P (MAP) Pulse Ox O2 Delivery O2 Flow Rate FiO2 02/04/17 21:41 99 Room Air 02/04/17 21:30 98.0 74 15 136/68 (90) Orders Orders Complete Blood Count With Diff (02/04/17 21:39) Comprehensive Metabolic Panel (02/04/17 21:39) Prothrombin Time / Inr (Pt) (02/04/17 21:39) Act Partial Throm Time (Ptt) (02/04/17 21:39) Iv Access Insert/Monitor (02/04/17 21:39) Ecg Monitoring (02/04/17 21:39) Oximetry (02/04/17 21:39) Type And Screen (02/04/17 22:18) Labs Laboratory Tests Test 02/04/17 21:20 Prothrombin Time 10.0 SEC Prothromb Time International Ratio 1.0 RATIO Activated Partial Thromboplast Time 28.0 SEC Blood Urea Nitrogen 14 MG/DL Creatinine 0.96 MG/DL Random Glucose 95 MG/DL Total Protein 8.2 GM/DL Albumin 3.2 GM/DL Calcium Level 8.4 MG/DL Aspartate Amino Transf (AST/SGOT) 40 U/L Alanine Aminotransferase (ALT/SGPT) 64 U/L Total Bilirubin 0.2 MG/DL Sodium Level 137 MEQ/L Potassium Level 3.8 MEQ/L Chloride Level 103 MEQ/L Carbon Dioxide Level 26.0 MEQ/L Anion Gap 8 MEQ/L Estimat Glomerular Filtration Rate 76 ML/MIN MDM Medical Decision Making Medical Screen Exam Complete: Yes Emergency Medical Condition: Yes Medical Record Reviewed: Yes Differential Diagnosis ANEMIA V DEHYDRATION V LIVER DZ V HYPOGLYCEMIA OR OTHER ELECTROLYTE ABNORMALITY Narrative Course ANEMIA WITH HB 8 BUT BETTER THAN HER USUAL. NO DEHYDRATION, NO MAJOR LIVER DISEASE, NO HYPOGLYCEMIA OR SIGNIFICANT ELECTROLYTE ABNL Diagnosis Primary Impression: Weakness generalized Additional Impressions: VIRAL SYNDROME ANEMIA Patient Instructions: Anemia (ED), General Instructions, Viral Syndrome (ED) Additional Instructions: PLEASE MAKE A FOLLOW UP APPOINTMENT WITH DR DOS SANTOS FOR FURTHER EVALUATION OR CARE. TODAY YOUR HEMOGLOBIN WAS 8, YOUR WHITE COUNT WAS NOT ELEVATED BUT SUGGESTIVE OF A VIRAL INFECTION. THE COMBINATION OF ANEMIA AND VIRAL SYNDROME WILL ACCOUNT FOR YOUR FATIGUE AND GENERALIZED WEAKNESS. Disposition: 01 DISCHARGE HOME Condition: Stable Wilfredo Lopez MD Feb 04, 2017 22:39
[2017-02-04 22:45] LABS: AUTOMATED NEUTROPHIL # 4.6 TH/MM3 (1.8-7.7); BASOPHIL # 0.1 TH/MM3 (0-0.2); BASOPHIL % 0.8 % (0.0-2.0); EOSINOPHIL # 0.3 TH/MM3 (0-0.4); EOSINOPHIL % 3.7 % (0.0-4.0); HEMATOCRIT 27.4 % (35.0-46.0); HEMOGLOBIN 8.1 GM/DL (11.6-15.3); LYMPH % 29.6 % (9.0-44.0); LYMPHOCYTE # 2.3 TH/MM3 (1.0-4.8); MEAN CELL VOLUME 68.5 FL (80.0-100.0); MEAN CORPUSCULAR HEMOGLOBIN 20.3 PG (27.0-34.0); MONO % 6.8 % (0.0-8.0); MONOCYTE # 0.5 TH/MM3 (0-0.9); NEUT % 59.1 % (16.0-70.0); PLATELET COUNT 631 TH/MM3 (150-450); WHITE BLOOD COUNT 7.8 TH/MM3 (4.0-11.0)
[2017-02-04 22:48] LABS: CHLORIDE 103 MEQ/L (98-107); SODIUM (NA) 137 MEQ/L (136-145)
[2017-02-04 22:51] LABS: CALCIUM 8.4 MG/DL (8.5-10.1)
[2017-02-04 22:52] LABS: ALBUMIN 3.2 GM/DL (3.4-5.0); BLOOD UREA NITROGEN 14 MG/DL (7-18); GLUCOSE,RANDOM 95 MG/DL (74-106)
[2017-02-04 22:53] LABS: MEAN CORPUSCULAR HGB CONC 29.6 % (32.0-36.0)
[2017-02-04 22:55] LABS: ALT (GPT) 64 U/L (10-53); AST (GOT) 40 U/L (15-37); CREATININE 0.96 MG/DL (0.50-1.00); GLOMERULAR FILTRATION RATE 76 ML/MIN (>89)
[2017-02-04 22:56] LABS: TOTAL BILIRUBIN ADULT 0.2 MG/DL (0.2-1.0); TOTAL PROTEIN 8.2 GM/DL (6.4-8.2)
[2017-02-04 22:58] LABS: ALKALINE PHOSPHATASE 79 U/L (45-117)
[2017-02-04 23:16] VITALS: BP 132/70; TEMP 98.2
[2017-02-04 23:27] LABS: OVALOCYTES 1+ (NORMAL); STOMATOCYTES 1+ (NORMAL)
[2017-02-23] MEDS ORDERED: TERC0.8C VAGINAL (14:33)
[2017-02-23] MEDS ORDERED: DIFL150T PO (14:33)
== END 2017-02-04 23:38 | disposition home or self-care (01) ==
LOC: PHED 21:21
DX: R53.1 Weakness (principal); B34.9 Viral infection, unspecified; D64.9 Anemia, unspecified
CPT/HCPCS: 80053; 85025; 85610; 85730; 86850; 86900; 86901; 99283

== ENCOUNTER 2017-08-09 21:07 | Observation (INO) | payer OTHER ==
[~2017-08-09] VITALS: Ht 165.1 cm; Wt 88.3 kg
[~2017-08-09 21:07] MED LIST changes: +TERC0.8C VAGINAL
[2017-08-09] MEDS ORDERED: IOHEXOL 350 MG/ML 10 ML VIAL (for RAD DIAG) IVCONTRAST ONE (21:08)
[2017-08-09 21:14] VITALS: BP 130/75; PULSE 63; RESP 16; TEMP 98.6; O2SAT 100
[2017-08-09] MEDS ORDERED: SODIUM CHLOR 0.9% 1000 ML INJ 1,000 ML IV SCH (21:36)
--- NOTE | 2017-08-09 21:42 | PD ---
HPI Chief Complaint: Flank/Kidney Pain Time Seen by Provider: 21:36 Travel History International Travel<30 days: No Contact w/Intl Traveler<30days: No Traveled to known affect area: No History of Present Illness HPI 47-year-old female presents to the emergency department by private transportation the care of her spouse for evaluation of right lower quadrant abdominal pain and flank pain. Symptoms and present since yesterday with worsening symptoms. No fever no chills nausea no vomiting no diarrhea no constipation no dysuria frequency urgency hematuria or vaginal discharge or vaginal bleeding. Last menses was greater than 2 weeks ago. Patient has history of uterine fibroids but denies history of ovarian cyst. No history of kidney stones. No abdominal surgeries. Patient denies any upper respiratory infection symptoms no headache no cough no congestion no sore throat no earache no fever no chills no chest pain. Patient takes no medications on a regular basis. Patient is taken no acetaminophen or ibuprofen for symptoms. Patient rates her pain 8/10 intensity worsened by movement and improved by remaining still. PFSH Past Medical History Narrative Medical Anemia Ab2 no tobacco use; nursing notes reviewed Anemia: Yes Diminished Hearing: No Immunizations Current: Yes Tetanus Vaccination: Unknown Influenza Vaccination: No ?: Not LMP: 07/26/17 : 6 Para: 4 Miscarriage: 2 Social History Alcohol Use: No Tobacco Use: No Substance Use: No Allergies-Medications (Allergen,Severity, Reaction): Coded Allergies: No Known Allergies (Verified Adverse Reaction, Unknown, 08/09/17) Reported Meds & Prescriptions Reported Meds & Active Scripts Active Terconazole Vaginal Cream 0.8 % Cream 1 Appl VAGINAL HS For 3 days. Diflucan (Fluconazole) 150 Mg Tab 150 Mg PO ONCE Loestrin 1/20 (Norethindrone-Ethinyl Estradiol) 1-20 Mg-Mcg Tab 1 Tab PO DAILY Ferrous Gluconate 324 Mg Tab 1 Tab PO BID 30 Days Review of Systems Except as stated in HPI: all other systems reviewed are Neg Physical Exam Narrative GENERAL: Well-developed well-nourished female no acute distress or respiratory distress SKIN: Warm and dry. HEAD: Normocephalic. EYES: No scleral icterus. No injection or drainage. NECK: Supple, trachea midline. No JVD or lymphadenopathy. CARDIOVASCULAR: Regular rate and rhythm without murmurs, gallops, or rubs. RESPIRATORY: Breath sounds equal bilaterally. No accessory muscle use. GASTROINTESTINAL: Abdomen soft, right lower quadrant tenderness to palpation with voluntary guarding or rebound, nondistended. Pelvic exam: Normal external exam no redness induration or lesions noted on speculum exam white mucus no discharge no blood no clots no tissue loss closed; bimanual exam no adnexal mass or tenderness no cervical motion tenderness probable palpable fibroid. MUSCULOSKELETAL: No cyanosis, or edema. BACK: Nontender without obvious deformity. No CVA tenderness. Data Data Last Documented VS Vital Signs Date Time Temp Pulse Resp B/P (MAP) Pulse Ox O2 Delivery O2 Flow Rate FiO2 08/09/17 21:51 16 97 Room Air 08/09/17 21:14 98.6 63 130/75 (93) Orders Orders Complete Blood Count With Diff (08/09/17 21:36) Comprehensive Metabolic Panel (08/09/17 21:36) Lipase (08/09/17 21:36) Urinalysis - C+S If Indicated (08/09/17 21:36) Ct Abd/Pel W Iv Contrast(Rout) (08/09/17 21:36) Iv Access Insert/Monitor (08/09/17 21:36) Oximetry (08/09/17 21:36) Sodium Chlor 0.9% 1000 Ml Inj (Ns 1000 M (08/09/17 21:36) Ed Urine Pregnancytest Poc (08/09/17 21:36) Morphine Inj (Morphine Inj) (08/09/17 21:45) Metoclopramide Inj (Reglan Inj) (08/09/17 21:45) Iohexol 350 Inj (Omnipaque 350 Inj) (08/09/17 21:08) NPO (08/10/17 00:21) Piperacil-Tazo 4.5 Gm Premix (Zosyn 4.5 (08/10/17 00:30) Morphine Inj (Morphine Inj) (08/10/17 00:30) Place In Observation (08/10/17 ) Vital Signs (Adult) Q4H (08/10/17 00:28) Activity Oob Ad Arlene (08/10/17 00:28) Intake + Output MAMIE.QSHIFT (08/10/17 00:28) Diet Npo (08/10/17 Breakfast) Sodium Chlor 0.9% 1000 Ml Inj (Ns 1000 M (08/10/17 00:28) Sodium Chloride 0.9% Flush (Ns Flush) (08/10/17 00:30) Sodium Chloride 0.9% Flush (Ns Flush) (08/10/17 09:00) Metoclopramide Inj (Reglan Inj) (08/10/17 00:30) Comprehensive Metabolic Panel (08/11/17 06:00) Complete Blood Count With Diff (08/11/17 06:00) Scd Bilateral/Knee High MAMIE.BID (08/10/17 00:28) Rock Bilateral/Knee High MAMIE.QSHIFT (08/10/17 00:33) Acetaminophen (Tylenol) (08/10/17 00:30) Acetamin-Hydrocod 325-5 Mg ([place] 5-325 (08/10/17 00:30) Morphine Inj (Morphine Inj) (08/10/17 00:30) Docusate Sodium-Senna (Nata-Colace) (08/10/17 09:00) Magnesium Hydroxide Liq (Milk Of Magnesi (08/10/17 00:30) Sennosides (Senokot) (08/10/17 00:30) Bisacodyl Supp (Dulcolax Supp) (08/10/17 00:30) Lactulose Liq (Lactulose Liq) (08/10/17 00:30) Labs Laboratory Tests Test 08/09/17 21:49 White Blood Count 6.8 TH/MM3 Red Blood Count 4.51 MIL/MM3 Hemoglobin 10.0 GM/DL Hematocrit 31.8 % Mean Corpuscular Volume 70.5 FL Mean Corpuscular Hemoglobin 22.1 PG Mean Corpuscular Hemoglobin Concent 31.3 % Red Cell Distribution Width 17.4 % Platelet Count 504 TH/MM3 Mean Platelet Volume 6.9 FL Neutrophils (%) (Auto) 54.7 % Lymphocytes (%) (Auto) 32.4 % Monocytes (%) (Auto) 8.2 % Eosinophils (%) (Auto) 3.4 % Basophils (%) (Auto) 1.3 % Neutrophils # (Auto) 3.7 TH/MM3 Lymphocytes # (Auto) 2.2 TH/MM3 Monocytes # (Auto) 0.6 TH/MM3 Eosinophils # (Auto) 0.2 TH/MM3 Basophils # (Auto) 0.1 TH/MM3 CBC Comment AUTO DIFF Differential Comment AUTO DIFF CONFIRMED Platelet Estimate HIGH Platelet Morphology Comment NORMAL Urine Color YELLOW Urine Turbidity SL CLOUDY Urine pH 6.0 Urine Specific [place] 1.025 Urine Protein NEG mg/dL Urine Glucose (UA) NEG mg/dL Urine Ketones NEG mg/dL Urine Occult Blood TRACE Urine Nitrite NEG Urine Bilirubin NEG Urine Urobilinogen 0.2 MG/DL Urine Leukocyte Esterase TRACE Urine RBC 3-5 /hpf Urine WBC 3-5 /hpf Urine Squamous Epithelial Cells 6-8 /hpf Urine Bacteria FEW /hpf Microscopic Urinalysis Comment CULT NOT INDICATED Blood Urea Nitrogen 10 MG/DL Creatinine 0.80 MG/DL Random Glucose 96 MG/DL Total Protein 8.2 GM/DL Albumin 3.3 GM/DL Calcium Level 8.1 MG/DL Alkaline Phosphatase 67 U/L Aspartate Amino Transf (AST/SGOT) 13 U/L Alanine Aminotransferase (ALT/SGPT) 19 U/L Total Bilirubin 0.1 MG/DL Sodium Level 140 MEQ/L Potassium Level 3.6 MEQ/L Chloride Level 107 MEQ/L Carbon Dioxide Level 24.3 MEQ/L Anion Gap 9 MEQ/L Estimat Glomerular Filtration Rate 93 ML/MIN Lipase 125 U/L [facility] Medical Decision Making Medical Screen Exam Complete: Yes Emergency Medical Condition: Yes Medical Record Reviewed: Yes Interpretation(s) POC preg: negative Last Impressions Abdomen/Pelvis CT 08/09/172135 Signed Impressions: CONCLUSION: 1. Appendicitis. 2. Enlarged uterus with multiple masses likely representing leiomyomatous gallardo ge. 3. Nonspecific small subcentimeter hepatic lesions. These likely represent cys ts. CBC & BMP Diagram 08/09/17 21:49 Total Protein 8.2, Albumin 3.3 L, Calcium Level 8.1 L, Alkaline Phosphatase 67, Aspartate Amino Transf (AST/SGOT) 13 L, Alanine Aminotransferase (ALT/SGPT) 19, Total Bilirubin 0.1 L Vital Signs Date Time Temp Pulse Resp B/P (MAP) Pulse Ox O2 Delivery O2 Flow Rate FiO2 08/09/17 21:51 16 97 Room Air 08/09/17 21:37 16 08/09/17 21:14 98.6 63 16 130/75 (93) 100 Differential Diagnosis Abdominal pain atypical appendicitis renal colic intestinal colic small bowel obstruction enteritis UTI ruptured ovarian cyst ovarian torsion mass Narrative Course IV access obtained specimens collected and sent for resulting Lab values grossly normal range [id number] hCG is negative Patient waiting for CT CT results are consistent with appendicitis and fundal leiomyomata; patient's complaint of pain is 6/10 intensity; CT results and presentation discussed with on-call surgeon patient to stay at [facility] to medicine service with a.m. appendectomy planned; call placed to [facility] service Physician Communication Physician Communication discussed with Dr Gamble; call placed to [facility] service Diagnosis Primary Impression: Appendicitis Vannessa Linares MD Aug 09, 2017 21:42
[2017-08-09] MEDS ORDERED: METOCLOPRAMIDE HCL 10 MG/2 ML VIAL IV PUSH ONE (21:45)
[2017-08-09] MEDS ORDERED: MORPHINE SULFATE 4 MG/ML INJ IV PUSH ONE (21:45)
[2017-08-09 21:51] VITALS: RESP 16; O2SAT 97
[2017-08-09 21:57] LABS: AUTOMATED NEUTROPHIL # 3.7 TH/MM3 (1.8-7.7); BASOPHIL # 0.1 TH/MM3 (0-0.2); BASOPHIL % 1.3 % (0.0-2.0); BILIRUBIN, URINE NEG (NEG); BLOOD, URINE TRACE (NEG); EOSINOPHIL # 0.2 TH/MM3 (0-0.4); EOSINOPHIL % 3.4 % (0.0-4.0); GLUCOSE,URINE NEG (NEG); HEMATOCRIT 31.8 % (35.0-46.0); KETONE, URINE NEG (NEG); LYMPH % 32.4 % (9.0-44.0); LYMPHOCYTE # 2.2 TH/MM3 (1.0-4.8); MEAN CELL VOLUME 70.5 FL (80.0-100.0); MEAN CORPUSCULAR HEMOGLOBIN 22.1 PG (27.0-34.0); MEAN CORPUSCULAR HGB CONC 31.3 % (32.0-36.0); MEAN PLATELET VOLUME 6.9 FL (7.0-11.0); MONO % 8.2 % (0.0-8.0); MONOCYTE # 0.6 TH/MM3 (0-0.9); NEUT % 54.7 % (16.0-70.0); NITRITE,URINE NEG (NEG); PLATELET COUNT 504 TH/MM3 (150-450); RED BLOOD COUNT 4.51 MIL/MM3 (4.00-5.30); RED CELL DISTRIBUTION WIDTH 17.4 % (11.6-17.2); URINE COLOR YELLOW (YELLW/STRAW); URINE LEUKOCYTE ESTERASE TRACE (NEG); WHITE BLOOD COUNT 6.8 TH/MM3 (4.0-11.0)
[2017-08-09 22:04] LABS: CHLORIDE 107 MEQ/L (98-107); SODIUM (NA) 140 MEQ/L (136-145)
[2017-08-09 22:05] LABS: BACTERIA, URINE FEW /hpf
[2017-08-09 22:08] LABS: CALCIUM 8.1 MG/DL (8.5-10.1)
[2017-08-09 22:09] LABS: ALBUMIN 3.3 GM/DL (3.4-5.0); BICARBONATE 24.3 MEQ/L (21.0-32.0); BLOOD UREA NITROGEN 10 MG/DL (7-18); GLUCOSE,RANDOM 96 MG/DL (74-106)
[2017-08-09 22:11] LABS: ALT (GPT) 19 U/L (10-53); AST (GOT) 13 U/L (15-37)
[2017-08-09 22:12] LABS: GLOMERULAR FILTRATION RATE 93 ML/MIN (>89)
[2017-08-09 22:13] LABS: TOTAL BILIRUBIN ADULT 0.1 MG/DL (0.2-1.0); TOTAL PROTEIN 8.2 GM/DL (6.4-8.2)
[2017-08-09 22:14] LABS: ALKALINE PHOSPHATASE 67 U/L (45-117)
--- NOTE | 2017-08-10 00:17 | RADRPT ---
EXAM DATE: 08/09/2017 11:47 PM EDT AGE/SEX: 47 years / Female INDICATIONS: Right lower quadrant pain. CLINICAL DATA: This is the patient's initial encounter. Patient reports that signs and symptoms have been present for 1 day and indicates a pain score of 7/10. MEDICAL/SURGICAL HISTORY: None. None. ORAL CONTRAST: No oral contrast ingested. RADIATION DOSE: 15.14 CTDI (mGy) COMPARISON: No prior exams available for comparison. TECHNIQUE: Multiple contiguous axial images were obtained through the abdomen and pelvis following b olus infusion of 91 ml Omnipaque 350 (iohexol) nonionic water-soluble contrast as a single exam dos e. No oral contrast ingested. Using automated exposure control and adjustment of the mA and/or kV ac cording to patient size, the radiation dose was kept as low as reasonably achievable to obtain optima l diagnostic quality images. FINDINGS: Lower Lungs: The visualized lower lungs are clear. Liver: There are nonspecific hypodense lesions seen at the anterior superior aspect of the left lobe of the liver measuring 0.9 cm, at the superior posterior aspect of the lateral segment the left lobe of liver measuring 0.9 cm, and at the inferior aspect of the right lobe of the liver adjacent to the gallbladder fossa measuring 0.5 cm. These are nonspecific. They likely represent cysts. Spleen: Homogeneous density without enlargement. Pancreas: Unremarkable without mass or calcification. Kidneys: Normal in size and shape. No evidence of mass or hydronephrosis. Adrenal Glands: Unremarkable. Aorta: The aorta and proximal iliac vessels are grossly unremarkable without aneurysmal dilation. Bowel/Mesentery: The appendix appears thickened. There is induration seen around the mid and distal aspect of the appendix. The proximal most aspect of the pancreas is small amount of air within the li mits. These changes are most consistent with appendicitis sparing the proximal aspect of the appendix . Abdominal Wall: Intact. Retroperitoneum: No evidence of adenopathy in the retrocrural, para-aortic, or deep pelvic regions. Bladder: Contours are smooth. Reproductive Organs: The uterus is enlarged with multiple masses likely representing leiomyomatous c hange. Inguinal: The inguinal region is unremarkable without evidence of adenopathy. Bony Structures: Unremarkable. CONCLUSION: 1. Appendicitis. 2. Enlarged uterus with multiple masses likely representing leiomyomatous change. 3. Nonspecific small subcentimeter hepatic lesions. These likely represent cysts. Electronically signed by: Skyler Rubin MD 08/10/2017 12:16 AM EDT
[2017-08-10] MEDS: SODIUM CHLOR 0.9% 1000 ML INJ 1,000 ML IV SCH ×3 (00:28→14:42)
[2017-08-10] MEDS ORDERED: SENNOSIDES 8.6 MG TAB PO PRN (00:30)
[2017-08-10] MEDS ORDERED: BISACODYL 10 MG SUPP RECTAL PRN (00:30)
[2017-08-10] MEDS ORDERED: PIPERACIL-TAZO 4.5 GM PREMIX 100 ML IV ONE (00:30)
[2017-08-10] MEDS ORDERED: SODIUM CHLORIDE 0.9% FLUSH 10 ML FLUSH IV FLUSH PRN (00:30)
[2017-08-10] MEDS ORDERED: MORPHINE SULFATE 2 MG/ML SYRINGE IV PUSH PRN (00:30)
[2017-08-10] MEDS ORDERED: MAGNESIUM HYDROXIDE SUSP 30 ML CUP PO PRN (00:30)
[2017-08-10] MEDS ORDERED: LACTULOSE SYRUP 20 GM/30 ML CUP PO PRN (00:30)
[2017-08-10] MEDS ORDERED: METOCLOPRAMIDE HCL 10 MG/2 ML VIAL IV PUSH PRN (00:30)
[2017-08-10] MEDS ORDERED: ACETAMINOPHEN/HYDROcodone 325 MG/5 MG TAB PO PRN ×2 (00:30→12:30)
[2017-08-10] MEDS ORDERED: ACETAMINOPHEN 325 MG TAB PO PRN (00:30)
[2017-08-10] MEDS ORDERED: MORPHINE SULFATE 4 MG/ML INJ IV PUSH ONE (00:30)
[2017-08-10 00:36] VITALS: BP 113/64; PULSE 78; RESP 16; O2SAT 98
[2017-08-10 01:15] VITALS: BP 119/58; PULSE 63; RESP 20; TEMP 97.2; O2SAT 98
[2017-08-10] MEDS: PIPERACIL-TAZO 3.375 GM PREMIX 50 ML IV SCH ×2 (08:40→16:15)
[2017-08-10 08:58] VITALS: BP 104/50; PULSE 59; RESP 17; TEMP 97.3; O2SAT 99
[2017-08-10] MEDS ORDERED: SODIUM CHLORIDE 0.9% FLUSH 10 ML FLUSH IV FLUSH SCH (09:00)
[2017-08-10] MEDS ORDERED: DOCUSATE SODIUM 50 MG/SENNA 8.6 MG TAB PO SCH (09:00)
--- NOTE | 2017-08-10 09:00 | HHI.HP ---
[facility] Jaqueline Lamb MD Admission Diagnosis appendicitis Diagnoses: (1) Appendicitis Chief Complaint: Abdominal pain. Travel History International Travel<30 Days: No Contact w/Intl Traveler <30 Da: No Traveled to Known Affected Are: No History of Present Illness This is a pleasant 47-year-old female patient with a known medical history of anemia presented to the ED via private transportation with her spouse for complaints of right lower quadrant abdominal pain. Patient states that her symptoms began Sunday afternoon beginning in her right lower quadrant, she states that she had a sharp pain only with activity. Resolved at rest. Patient states that the pain was relatively constant with activity, rates the pain an 8 out of 10 at its worst on pain scale, did not improve over the course of the next couple days therefore she decided to get evaluated. Patient denies taking any pain medications at home. She denies any associated nausea, vomiting , diarrhea, recent fevers, chills, cough, chest pain, or dysuria. She denies ever having this type of pain before. 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 Patient follows with her ADJUNCT LECTURER closely. Patient denies any recent black or bloody stools. PCP is Dr. Lamb. Patient does not take any medications on a daily basis. Review of Systems Constitutional: COMPLAINS OF: Fatigue, DENIES: Fever, Chills Eyes: DENIES: Diplopia Ears, nose, mouth, throat: DENIES: Vertigo Respiratory: DENIES: Cough, Sputum production, Shortness of breath Cardiovascular: DENIES: Chest pain, Palpitations Gastrointestinal: COMPLAINS OF: Abdominal pain (Right lower quadrant), DENIES: Black stools, Bloody stools, Constipation, Diarrhea, Nausea, Vomiting Musculoskeletal: DENIES: Joint pain Integumentary: DENIES: Abnormal pigmentation Immunologic/allergic: DENIES: Eczema Neurologic: DENIES: Abnormal gait Psychiatric: DENIES: Anxiety Except as stated in HPI: all other systems reviewed are Neg Past Family Social History Past Medical History Anemia Past Surgical History Uterine D&C Reported Medications Active Terconazole Vaginal Cream 0.8 % Cream 1 Appl VAGINAL HS For 3 days. Diflucan (Fluconazole) 150 Mg Tab 150 Mg PO ONCE Loestrin 1/20 (Norethindrone-Ethinyl Estradiol) 1-20 Mg-Mcg Tab 1 Tab PO DAILY Ferrous Gluconate 324 Mg Tab 1 Tab PO BID 30 Days Allergies: Coded Allergies: No Known Allergies (Verified Adverse Reaction, Unknown, 08/09/17) Active Ordered Medications Current Medications Medications (Trade) Dose Ordered Sig/Kyle Route Start Time Stop Time Status Last Admin Sodium Chloride 1,000 ml @ 100 mls/hr Q10H IV 08/10/17 00:28 08/10/17 00:28 (NS Flush) 2 ml UNSCH PRN IV FLUSH 08/10/17 00:30 (NS Flush) 2 ml BID IV FLUSH 08/10/17 09:00 (Reglan Inj) 5 mg Q6H PRN IV PUSH 08/10/17 00:30 (Tylenol) 650 mg Q6H PRN PO 08/10/17 00:30 ([place] 5-325 Mg) 1 tab Q4H PRN PO 08/10/17 00:30 (Morphine Inj) 2 mg Q3H PRN IV PUSH 08/10/17 00:30 (Nata-Colace) 1 tab BID PO 08/10/17 09:00 08/10/17 08:40 (Milk Of Magnesia Liq) 30 ml Q12H PRN PO 08/10/17 00:30 (Senokot) 17.2 mg Q12H PRN PO 08/10/17 00:30 (Dulcolax Supp) 10 mg DAILY PRN RECTAL 08/10/17 00:30 (Lactulose Liq) 30 ml DAILY PRN PO 08/10/17 00:30 Piperacillin Sod/ Tazobactam Sod 50 ml @ 100 mls/hr Q8H IV 08/10/17 09:00 08/10/17 08:40 Family History Paternal medical history significant for colon cancer. Social History Denies any history or current tobacco abuse, denies any alcohol use or illicit drug use. Physical Exam Vital Signs Vital Signs Date Time Temp Pulse Resp B/P (MAP) Pulse Ox O2 Delivery O2 Flow Rate FiO2 08/10/17 08:58 97.3 59 17 104/50 (68) 99 08/10/17 01:15 97.2 63 20 119/58 (78) 98 08/10/17 01:15 08/10/17 00:36 78 16 113/64 (80) 98 Room Air 08/09/17 21:51 16 97 Room Air 08/09/17 21:37 16 08/09/17 21:14 98.6 63 16 130/75 (93) 100 Physical Exam GENERAL: Well-developed, well-nourished patient in NAD. SKIN: Warm and dry. No rash. HEAD: Normocephalic. Atraumatic. EYES: Pupils equal and round. No scleral icterus. No injection or drainage. ENT: No nasal bleeding or discharge. Mucous membranes pink and moist. NECK: Supple. Trachea midline. CARDIOVASCULAR: Regular rate and rhythm. S1, S2 noted. No murmur appreciated. RESPIRATORY: No accessory muscle use. Clear to auscultation. Breath sounds equal bilaterally. GASTROINTESTINAL: Abdomen soft, nondistended. Normoactive bowel sounds x4. Right lower quadrant tenderness to palpation. MUSCULOSKELETAL: No obvious deformities. Extremities without clubbing, cyanosis , or edema. NEUROLOGICAL: Awake and alert. No obvious cranial nerve deficits. Motor grossly within normal limits. 5/5 muscle strength in bilateral upper and lower extremities. Normal speech. PSYCHIATRIC: Appropriate mood and affect; insight and judgment normal. Laboratory Laboratory Tests Test 08/09/17 21:49 White Blood Count 6.8 Red Blood Count 4.51 Hemoglobin 10.0 Hematocrit 31.8 Mean Corpuscular Volume 70.5 Mean Corpuscular Hemoglobin 22.1 Mean Corpuscular Hemoglobin Concent 31.3 Red Cell Distribution Width 17.4 Platelet Count 504 Mean Platelet Volume 6.9 Neutrophils (%) (Auto) 54.7 Lymphocytes (%) (Auto) 32.4 Monocytes (%) (Auto) 8.2 Eosinophils (%) (Auto) 3.4 Basophils (%) (Auto) 1.3 Neutrophils # (Auto) 3.7 Lymphocytes # (Auto) 2.2 Monocytes # (Auto) 0.6 Eosinophils # (Auto) 0.2 Basophils # (Auto) 0.1 CBC Comment AUTO DIFF Differential Comment AUTO DIFF CONFIRMED Platelet Estimate HIGH Platelet Morphology Comment NORMAL Urine Color YELLOW Urine Turbidity SL CLOUDY Urine pH 6.0 Urine Specific [place] 1.025 Urine Protein NEG Urine Glucose (UA) NEG Urine Ketones NEG Urine Occult Blood TRACE Urine Nitrite NEG Urine Bilirubin NEG Urine Urobilinogen 0.2 Urine Leukocyte Esterase TRACE Urine RBC 3-5 Urine WBC 3-5 Urine Squamous Epithelial Cells 6-8 Urine Bacteria FEW Microscopic Urinalysis Comment CULT NOT INDICATED Blood Urea Nitrogen 10 Creatinine 0.80 Random Glucose 96 Total Protein 8.2 Albumin 3.3 Calcium Level 8.1 Alkaline Phosphatase 67 Aspartate Amino Transf (AST/SGOT) 13 Alanine Aminotransferase (ALT/SGPT) 19 Total Bilirubin 0.1 Sodium Level 140 Potassium Level 3.6 Chloride Level 107 Carbon Dioxide Level 24.3 Anion Gap 9 Estimat Glomerular Filtration Rate 93 Lipase 125 Result Diagram: 08/09/17214808/09/172148 Imaging Last Impressions Abdomen/Pelvis CT 08/09/172135 Signed Impressions: CONCLUSION: 1. Appendicitis. 2. Enlarged uterus with multiple masses likely representing leiomyomatous gallardo ge. 3. Nonspecific small subcentimeter hepatic lesions. These likely represent cys ts. Septic Shock Reassessment Septic shock perfusion: reassessment completed Caprini VTE Risk Assessment Caprini VTE Risk Assessment: No/Low Risk (score <= 1) Caprini Risk Assessment Model Point Value = 1 Point Value = 2 Point Value = 3 Point Value = 5 Age 41-60 Minor surgery BMI > 25 kg/m2 Swollen legs Varicose veins or History of unexplained or recurrent spontaneous Oral contraceptives or hormone replacement Sepsis (< 1 month) Serious lung disease, including pneumonia (< 1 month) Abnormal pulmonary function Acute myocardial infarction Congestive heart failure (< 1 month) History of inflammatory bowel disease Medical patient at bed rest Age 61-74 Arthroscopic surgery Major open surgery (> 45 min) Laparoscopic surgery (> 45 min) Malignancy Confined to bed (> 72 hours) Immobilizing plaster cast Central venous access Age >= 75 History of VTE Family history of VTE Factor V Leiden Prothrombin [id number] Lupus anticoagulant Anticardiolipin antibodies Elevated serum homocysteine Heparin-induced thrombocytopenia Other congenital or acquired thrombophilia Stroke (< 1 month) Elective arthroplasty Hip, pelvis, or leg fracture Acute spinal cord injury (< 1 month) Prophylaxis Regimen Total Risk Factor Score Risk Level Prophylaxis Regimen 0-1 Low Early ambulation 2 Moderate Order ONE of the following: *Sequential Compression Device (SCD) *Heparin 5000 units SQ BID 3-4 Higher Order ONE of the following medications: *Heparin 5000 units SQ TID *Enoxaparin/Lovenox 40 mg SQ daily (WT < 150 kg, CrCl > 30 mL/min) *Enoxaparin/Lovenox 30 mg SQ daily (WT < 150 kg, CrCl > 10-29 mL/min) *Enoxaparin/Lovenox 30 mg SQ BID (WT < 150 kg, CrCl > 30 mL/min) AND/OR *Sequential Compression Device (SCD) 5 or more Highest Order ONE of the following medications: *Heparin 5000 units SQ TID (Preferred with Epidurals) *Enoxaparin/Lovenox 40 mg SQ daily (WT < 150 kg, CrCl > 30 mL/min) *Enoxaparin/Lovenox 30 mg SQ daily (WT < 150 kg, CrCl > 10-29 mL/min) *Enoxaparin/Lovenox 30 mg SQ BID (WT < 150 kg, CrCl > 30 mL/min) AND *Sequential Compression Device (SCD) Assessment and Plan Problem List: (1) Appendicitis ICD Code: K37 - Unspecified appendicitis Status: Acute Assessment and Plan This is a pleasant 47-year-old female patient with a known medical history of anemia presented to the ED via private transportation with her spouse for complaints of right lower quadrant abdominal pain. Patient states that her symptoms began Sunday afternoon beginning in her right lower quadrant, she states that she had a sharp pain only with activity. Acute appendicitis with complaints of right lower quadrant abdominal pain - Abdominal/pelvis CT showing appendicitis. Enlarged uterus. - Patient was placed on IV Zosyn. Will continue. Ensure hydration, continue IV fluids. No leukocytosis at this time. Afebrile. UA negative. Monitor for any infection. - Pain control, [place] p.o. and morphine IV available as needed per pain scale. - Reglan available for nausea or vomiting. - General surgery consulted, appreciate input recommendations. Will plan for appendectomy today by Dr. Gamble. - Further treatment plan and hospitalization will depend on general surgery recommendations. Chronic microcytic hypochromic anemia - Patient being followed by [employer]EIGN STUDENT ADVISER. Outpatient follow-up. No signs of bleeding. Will continue to monitor CBC. DVT prophylaxis: SCDs. Discharge patient to home. Condition on discharge: Improved Regular Diet as tolerated. Ad Arlene activity. Rx written: See discharge plan. Follow-up with primary care physician and surgeon. Problem Qualifiers (1) Appendicitis: Qualified Codes: K35.3 - Acute appendicitis with localized peritonitis Amber Petersen Aug 10, 2017 09:00
[2017-08-10] MEDS ORDERED: BUPIVACAINE/EPINEPHRINE 0.5% PF 30 ML VIAL ONE (09:29)
--- NOTE | 2017-08-10 09:58 | PD.CONS ---
cc: Howie Gamble MD [facility] Service CONSULTATION NOTE FOR SURGICAL ATTENDING, DR. HOWIE GAMBLE General Surgery Consult Requested By Dr. Linares Reason for Consult Acute appendicitis Primary Care Physician Jaqueline Lamb MD History of Present Illness This is a 47 year old female with a past medical history of uterine fibroids who presented to the ED overnight with sudden onset of abdominal pain on Sunday evening. She reports no associated nausea or vomiting. A CT abdomen/ pelvis was obtained which shows inflammation of the appendix. She has a normal WBC. She denies any fevers. Of note, the patient's hemoglobin earlier this year was 6.0 secondary to uterine fibroids and heavy menses. She was transfused. A General Surgery consultation has been requested. Review of Systems Constitutional: DENIES: Fatigue, Weight loss, Chills, Change in appetite Endocrine: DENIES: Polydipsia, Polyuria, Polyphagia Eyes: DENIES: Diplopia, Eye inflammation Ears, nose, mouth, throat: DENIES: Hearing loss Respiratory: DENIES: Cough Cardiovascular: DENIES: Chest pain, Dyspnea on Exertion Gastrointestinal: COMPLAINS OF: Abdominal pain, DENIES: Nausea, Vomiting Genitourinary: DENIES: Hematuria, Dysuria Musculoskeletal: DENIES: Joint pain Integumentary: DENIES: Abnormal pigmentation Hematologic/lymphatic: DENIES: Bruising Immunologic/allergic: DENIES: Eczema Neurologic: DENIES: Abnormal gait, Headache Psychiatric: DENIES: Confusion, Mood changes, Depression Past Family Social History Past Medical History Uterine fibroids Past Surgical History Diagnostic laparoscopy Reported Medications control injections Allergies: Coded Allergies: No Known Allergies (Verified Adverse Reaction, Unknown, 08/09/17) Active Ordered Medications Current Medications Medications (Trade) Dose Ordered Sig/Kyle Route Start Time Stop Time Status Last Admin Sodium Chloride 1,000 ml @ 100 mls/hr Q10H IV 08/10/17 00:28 08/10/17 00:28 (NS Flush) 2 ml UNSCH PRN IV FLUSH 08/10/17 00:30 (NS Flush) 2 ml BID IV FLUSH 08/10/17 09:00 (Reglan Inj) 5 mg Q6H PRN IV PUSH 08/10/17 00:30 (Tylenol) 650 mg Q6H PRN PO 08/10/17 00:30 (Stevenson 5-325 Mg) 1 tab Q4H PRN PO 08/10/17 00:30 (Morphine Inj) 2 mg Q3H PRN IV PUSH 08/10/17 00:30 (Nata-Colace) 1 tab BID PO 08/10/17 09:00 08/10/17 08:40 (Milk Of Magnesia Liq) 30 ml Q12H PRN PO 08/10/17 00:30 (Senokot) 17.2 mg Q12H PRN PO 08/10/17 00:30 (Dulcolax Supp) 10 mg DAILY PRN RECTAL 08/10/17 00:30 (Lactulose Liq) 30 ml DAILY PRN PO 08/10/17 00:30 Piperacillin Sod/ Tazobactam Sod 50 ml @ 100 mls/hr Q8H IV 08/10/17 09:00 08/10/17 08:40 Family History Noncontributory Social History Denies tobacco use Denies ETOH use Denies illicit drug use Physical Exam Vital Signs Vital Signs Date Time Temp Pulse Resp B/P (MAP) Pulse Ox O2 Delivery O2 Flow Rate FiO2 08/10/17 08:58 97.3 59 17 104/50 (68) 99 08/10/17 01:15 97.2 63 20 119/58 (78) 98 08/10/17 01:15 08/10/17 00:36 78 16 113/64 (80) 98 Room Air 08/09/17 21:51 16 97 Room Air 08/09/17 21:37 16 08/09/17 21:14 98.6 63 16 130/75 (93) 100 Physical Exam GENERAL: Pleasant 47 year old female resting in bed in no acute distress. SKIN: Warm and dry. HEAD: Atraumatic. Normocephalic. EYES: Pupils equal and round. No scleral icterus. No injection or drainage. ENT: No nasal bleeding or discharge. Mucous membranes pink and moist. NECK: Trachea midline. CARDIOVASCULAR: Regular rate and rhythm. RESPIRATORY: No accessory muscle use. Clear to auscultation. Breath sounds equal bilaterally. GASTROINTESTINAL: Abdomen soft, mildly distended; RLQ tenderness with palpation mild rebound and guarding. MUSCULOSKELETAL: Extremities without clubbing, cyanosis, or edema. No obvious deformities. NEUROLOGICAL: Awake and alert. No obvious cranial nerve deficits. Motor grossly within normal limits. Five out of 5 muscle strength in the arms and legs. Normal speech. PSYCHIATRIC: Appropriate mood and affect; insight and judgment normal. Laboratory Laboratory Tests Test 08/09/17 21:49 White Blood Count 6.8 Red Blood Count 4.51 Hemoglobin 10.0 Hematocrit 31.8 Mean Corpuscular Volume 70.5 Mean Corpuscular Hemoglobin 22.1 Mean Corpuscular Hemoglobin Concent 31.3 Red Cell Distribution Width 17.4 Platelet Count 504 Mean Platelet Volume 6.9 Neutrophils (%) (Auto) 54.7 Lymphocytes (%) (Auto) 32.4 Monocytes (%) (Auto) 8.2 Eosinophils (%) (Auto) 3.4 Basophils (%) (Auto) 1.3 Neutrophils # (Auto) 3.7 Lymphocytes # (Auto) 2.2 Monocytes # (Auto) 0.6 Eosinophils # (Auto) 0.2 Basophils # (Auto) 0.1 CBC Comment AUTO DIFF Differential Comment AUTO DIFF CONFIRMED Platelet Estimate HIGH Platelet Morphology Comment NORMAL Urine Color YELLOW Urine Turbidity SL CLOUDY Urine pH 6.0 Urine Specific [place] 1.025 Urine Protein NEG Urine Glucose (UA) NEG Urine Ketones NEG Urine Occult Blood TRACE Urine Nitrite NEG Urine Bilirubin NEG Urine Urobilinogen 0.2 Urine Leukocyte Esterase TRACE Urine RBC 3-5 Urine WBC 3-5 Urine Squamous Epithelial Cells 6-8 Urine Bacteria FEW Microscopic Urinalysis Comment CULT NOT INDICATED Blood Urea Nitrogen 10 Creatinine 0.80 Random Glucose 96 Total Protein 8.2 Albumin 3.3 Calcium Level 8.1 Alkaline Phosphatase 67 Aspartate Amino Transf (AST/SGOT) 13 Alanine Aminotransferase (ALT/SGPT) 19 Total Bilirubin 0.1 Sodium Level 140 Potassium Level 3.6 Chloride Level 107 Carbon Dioxide Level 24.3 Anion Gap 9 Estimat Glomerular Filtration Rate 93 Lipase 125 Result Diagram: 08/09/17214808/09/172148 Imaging Last 48 hours Impressions Abdomen/Pelvis CT 08/09/172135 Signed Impressions: CONCLUSION: 1. Appendicitis. 2. Enlarged uterus with multiple masses likely representing leiomyomatous gallardo ge. 3. Nonspecific small subcentimeter hepatic lesions. These likely represent cys ts. Assessment and Plan Problem List: (1) Abdominal rebound tenderness of right lower quadrant ICD Codes: R10.823 - Right lower quadrant rebound abdominal tenderness Status: Acute (2) Abnormal CT of the abdomen ICD Codes: R93.5 - Abnormal findings on diagnostic imaging of other abdominal regions, including retroperitoneum Status: Acute (3) Appendicitis ICD Codes: K37 - Unspecified appendicitis Status: Acute (4) Anemia ICD Codes: D64.9 - Anemia, unspecified Status: Chronic (5) Fibroid ICD Codes: D25.9 - Leiomyoma of uterus, unspecified Status: Chronic Assessment and Plan 47 year old female with RLQ tenderness; CT c/w appendicitis -Will plan for OR today -Obtain consents -NPO -Zosyn -IVF -Pain control -Thank you for this consult; We will continue to follow Discussed Condition With Dr. Mavis Hui Attending Statement CONSULTATION NOTE FOR SURGICAL ATTENDING, DR. HOWIE GAMBLE I agree with above assessment and plan. Patient seen Reviewed CT scan Has classic symptomatology consistent with appendicitis confirmed with radiologic imaging Discussed in detail surgical treatment she appears to understand The exam, history, and the medical decision-making described in the above note were completed with the assistance of the mid-level provider. I reviewed and agree with the findings presented. I attest that I had a [id number] encounter with the patient on the same day, and personally performed and documented my assessment and findings in the medical record. The following services were provided during this hospital visit: Chart data review, vital sign assessments/reviewing monitor data Review of consultations notes if present. Medication orders/review and/or management Ordering and/or reviewing lab tests Ordering and/or interpreting/reviewing x-rays and/or diagnostic studies Care of the patient and discussion of the patient with the care team Documentation time To help prompt me to consider important information that might be impacting today's encounter and assessment, Information from prior notes written by myself or my colleagues may have been "brought forward/copy and pasted" into today's note. Problem Qualifiers (1) Appendicitis: Qualified Codes: K35.3 - Acute appendicitis with localized peritonitis Sandy Garcia/[employer] Aug 10, 2017 09:58 Howie Gamble MD Aug 10, 2017 12:15
[2017-08-10] MEDS ORDERED: fentaNYL CITRATE 250 MCG/5 ML AMP ONE (10:08)
[2017-08-10] MEDS ORDERED: MIDAZOLAM HCL 2 MG/2 ML VIAL ONE (10:15)
[2017-08-10 11:36] VITALS: PULSE 88
--- NOTE | 2017-08-10 12:19 | HHI.PR ---
cc: Howie Gamble MD Immediate Post Op Note Procedure Date: Aug 10, 2017 Pre Op Diagnosis: (1) Appendicitis (2) Abnormal CT of the abdomen (3) Abdominal rebound tenderness of right lower quadrant (4) Abnormal menses (5) Fibroid Post Op Diagnosis: (1) S/P laparoscopic appendectomy (2) Appendicitis (3) Abnormal CT of the abdomen (4) Abdominal rebound tenderness of right lower quadrant (5) Anemia (6) Fibroid Surgeon: Howie Gamble Dental Lab Technician(s): Please refer to ER records Procedure: Laparoscopic appendectomy Findings: Inflamed appendix fibroid uterus Complications: None Specimen(s) removed: Inflamed appendix Estimated blood loss: 10 cc Anesthesia: General Drains: None IVF Patient to: PACU Patient Condition: Good Implant/Devices: SEE IMPLANT LOG (if applicable) Date/Time of Procedure: SEE SURGICAL CARE RECORD Howie Gamble MD Aug 10, 2017 12:19
[2017-08-10] MEDS ORDERED: NORC5TAB PO (12:28)
--- NOTE | 2017-08-10 12:58 | MP ---
cc: Howie Gamble MD, Joseph D MD DATE OF OPERATION: 08/10/2017 PREOPERATIVE DIAGNOSIS: Acute appendicitis. POSTOPERATIVE DIAGNOSIS: Acute appendicitis. PROCEDURE PERFORMED: Laparoscopic appendectomy. ANESTHESIA: General. SURGEON: Howie Gamble MD HISTORY: This is a pleasant 47-year-old female who had classic signs and symptomatology consistent with appendicitis confirmed with radiologic imaging. Plans were made for above. PROCEDURE: The patient taken to the operating room, placed in the supine position. After anesthesia, a timeout was done. She has already been given antibiotics. We made an incision above the umbilicus. A Veress needle was inserted. A saline load test was performed. The abdomen insufflated with 15 mmHg. A 10 mm trocar was introduced. Camera was introduced. Two other working ports were placed, one 5 mm above the pubic tubercle and a 5 mm in between the 2 previously placed ports. The camera was introduced. The appendix can be seen and is obviously inflamed. It was grasped and elevated up, mesentery taken down with the Harmonic scalpel. Two Endo ties were then placed around the base of the appendix and the appendix was then amputated, placed in the Endo Catch and pulled out through the umbilical incision and passed off the field. We then checked our dissection sites. There was excellent hemostasis. There was no spillage. It just appeared to be an inflamed appendix. She does have a fibroid uterus, which is known. Her gallbladder is smooth. Peritoneal surfaces are smooth. No other gross abnormalities seen. The CO2 was removed. We then removed the trocars. The fascia at the umbilicus was closed with 0 Vicryl and skin at all 3 sites closed with a 4-0 Vicryl. Steri-Strips applied, sterile bandage was applied. The patient tolerated the procedure well and had no immediate postop complications. Howie Gamble MD JDB/DL , 12:21 PM , 12:57 PM
--- NOTE | 2017-08-10 14:39 | HHI.DCPOC ---
Discharge Care Plan Diagnosis: (1) Appendicitis Goals to Promote Your Health * To prevent worsening of your condition and complications * To maintain your health at the optimal level Directions to Meet Your Goals Take your medications as prescribed Follow your dietary instruction Follow activity as directed Keep your appointments as scheduled Take your immunizations and boosters as scheduled If your symptoms worsen call your PCP, if no PCP go to Urgent Care Center or Emergency Room Smoking is Dangerous to Your Health. Avoid second hand smoke Call the 24-hour hour crisis hotline for domestic abuse at Amber Petersen Aug 10, 2017 14:39
[2017-08-10 16:21] VITALS: BP 117/63; PULSE 76; RESP 16; TEMP 97.3; O2SAT 100
== END 2017-08-10 17:17 | disposition home or self-care (01) ==
LOC: PHED 21:07 → PHEDA 08-10 00:33 → PH3A 08-10 01:14
PROVIDERS: ADMIT Hospitalist; ATTEND Hospitalist
DX: K35.3 Acute appendicitis with localized peritonitis (principal); D25.9 Leiomyoma of uterus, unspecified; Z79.899 Other long term (current) drug therapy; N92.0 Excessive and frequent menstruation with regular cycle; D50.0 Iron deficiency anemia secondary to blood loss (chronic); Z80.0 Family history of malignant neoplasm of digestive organs; R93.5 Abnormal findings on diagnostic imaging of other abdominal regions, including retroperitoneum
CPT/HCPCS: 00840; 44970; 74177; 80053; 81001; 83690; 84703; 85025; 88304; 96361; 96365; 96375; 96376; 99285; G0378; J2250; J2270; J2543; J2765; J3010; J7030; Q9967